=== PATIENT | female | born 1970 | race Caucasian/White ===

== ENCOUNTER 2017-12-04 12:58 | Inpatient (IN) | payer MEDICARE, SELFPAY ==
[2017-12-04] VITALS (26 sets, daily range): BP systolic 115–196; BP diastolic 69–156; PULSE 103–138; RESP 18–34; TEMP 36.3–38.8; O2SAT 95–100; BMI 28.5
[2017-12-04 13:15] LABS: Bedside Glucose 120 mg/dL (70-110)
--- NOTE | 2017-12-04 13:25 | ED.RN ---
PT REPORTED IM NOT A CUTTER PT NOTICED CUTTING KUMAR TO LLE MEDIALLY. PT ROCKING BACK IN FORTH IN BED, RESTLESS, TALKING ABOUT BEING IN A FIELD, GETTING KICKED TO LEFT SIDE OF RIBS, LOOKING FOR ANIMALS PT DENIES USING DRUGS. PT REPORTED GOING TO [employer], EATING HEALTHY, LISTENING TO [employer] MUSIC. PT TALKS NON-STOP AND CONTORTING WHEN LYING ON HER SIDE. I REMEMBER LAYING IN THE DIRT AND IT WAS COLD AND SCREAMING FOR THE CATS AND PRAYING. PT REMEMBERS THE HORSES WERE BEATING AND BANGING AND REMEMBER TELLING THE LORD; I'LL BREATHE REAL CAREFUL PT REMEMBERS CRAWLING INSIDE A TRUCK TODAY AND DRINKING WATER THAT WAS IN THE TRUCK PT REPORTING TURNING ON THE HEAT IN THE TRUCK AND FALLING ASLEEP. C/O FEELS LIKE MY TOES ARE
[2017-12-04 13:26] LABS: Mucous, Urine 0 SEEN /hpf (<or=2+); Red Blood Cells-Urine 0 SEEN /hpf (0-5); White Blood Cells 0 SEEN /hpf (0-5)
[2017-12-04] MEDS: Diphth,Pertuss(Acell),Tet Vac 0.5 ML Vial IM (13:34)
--- NOTE | 2017-12-04 13:37 | ED.RN ---
PT REMEMBERS ALL THE CATS STARTED MISSING ONLY ONE KITTEN WAS LEFT AND I SAW ALL THESE RED LIGHTS THEY WERE ALL BEHIND ME
--- NOTE | 2017-12-04 13:39 | ED.RN ---
ITS LIKE THE POWER WENT OUT BUT DIDN'T AND MY CAT WAS LITERALLY BANGING HIS HEAD AND GROWLING PT REPORTED SHE HAS NOT TAKEN ANY PO MEDICATIONS FOR YEARS.
[2017-12-04 13:41] LABS: Color, Urine YELLOW (Yellow); Glucose, Dipstick Normal (Normal); Ketone-Dipstick 50 mg/dl (Negative); Leukocyte Esterase-Dipstick Negative /ul (Negative); Nitrite-Dipstick Negative (Negative); Occult Blood-Urine Negative /ul (Negative); Protein-Dipstick 15 mg/dl (Negative); Urine Bilirubin Dipstick Negative (Negative); Urine Urobilinogen Normal (Normal)
[2017-12-04 13:42] LABS: Urine Clarity Clear (Clear)
[2017-12-04 13:42] LABS: Absolute Lymphocyte Count 3.22 X10^3/ul (0.83-4.51); Absolute Neutrophil Count 17.9 X10^3/uL (2.0-7.7); Basophil# 0.03 X10^3/uL; Basophil% 0.1 % (0-1); Eosinophil# 0.01 X10^3/uL; Hematocrit 44.1 % (37-47); Hemoglobin 15.2 g/dl (12.0-15.0); Lymphocyte # 3.22 X10^3/ul (4.0); Lymphocyte % 14.4 % (19-41); Mean Corp Hgb Conc 34.5 g/gl (32-36); Mean Corpuscular Hgb 32.5 pg (27.0-32.0); Mean Corpuscular Volume 94.2 fL (81-99); Mean Platelet Vol. 11.4 fl (6.2-12.0); Monocyte# 1.25 X10^3/uL; Monocyte% 5.6 % (0-10); Neutrophil # 17.87 X10^3/uL (2.7-7.7); Neutrophil % 79.7 % (47-70); Platelet Count 293 K/mm3 (150-450); RBC Distribution Width CV 12.6 % (11.6-14.6); Red Blood Count 4.68 M/mm3 (4.2-5.4); White Blood Count 22.4 K/mm3 (4.4-11.0)
[2017-12-04 13:44] LABS: POSITIVE COUNT NO; POSITIVE DIFFERENTIAL NO; POSITIVE MORPHOLOGY NO
[2017-12-04 13:45] LABS: Amphetamine Urine VISTA POSITIVE (<1000 ng/mL); Barbiturate Urine VISTA NEGATIVE (< 200 ng/mL); Benzodiazepine Urine VISTA NEGATIVE (< 200 ng/mL); Cocaine Urine VISTA NEGATIVE (< 300 ng/mL); Ecstacy Urine VISTA POSITIVE (< 500 ng/mL); Methadone Urine VISTA NEGATIVE (< 300 ng/mL); PCP Urine VISTA NEGATIVE (< 25 ng/mL); THC Urine VISTA POSITIVE (< 50 ng/mL); Vista UDS pH Range 5
[2017-12-04 13:46] LABS: Hyaline Cast 10-25 SEEN /lpf (0-5)
[2017-12-04 13:47] LABS: Bacteria 1+ /hpf (None Seen); Squamous Epithelial Cells - UA 0-5 SEEN /hpf (5-10)
--- NOTE | 2017-12-04 13:50 | ED.RN ---
PT REPEATS THAT SHE WAS LAYING OUTSIDE AND THE WIND WAS COMING FROM THE WEST AND WHEN I WOKE UP I WASN'T BEHIND THE WOOD PILE AND I NEEDED WATER
[2017-12-04 13:53] LABS: AST(SGOT) 21 U/L (15-37); Alanine Aminotransfer ALT/SGPT 22 U/L (13-56); Albumin, Serum 4.3 g/dL (3.2-5.0); Alkaline Phosphatase 97 U/L (45-117); Anion Gap 14 (5-15); BUN 48 mg/dL (7-18); BUN/Creat Ratio 30.2 RATIO (10-20); Calcium,Total 9.1 mg/dL (8.5-10.1); Chloride 103 mmol/L (98-107); Creatinine, Serum 1.59 mg/dL (0.55-1.02); EST Glomerular Filtration Rate 37 mL/min (>60); Est Glom Filt Rate - Afr Amer 45 mL/min (>60); Estimated Creatinine Clearance 36.57 ml/min; Globulin 4.3 g/dL (2.2-4.2); Glucose 107 mg/dL (74-106); Potassium 3.6 mmol/L (3.5-5.1); Protein, Total 8.6 g/dL (6.4-8.2); Sodium Level 139 mmol/L (136-145)
[2017-12-04 13:55] LABS: Partial Thromboplast Time 23.4 Seconds (24.1-36.2); Prothrombin Time (Protime)PT. 13.5 SECONDS (11.7-14.9)
--- NOTE | 2017-12-04 13:55 | CT_ITS ---
STUDY: CT BRAIN WITHOUT CONTRAST REASON FOR EXAM: Female, 47 years old. Altered mental status. RADIATION DOSAGE (If Supplied By Facility): CTDIvol = ( 44.99 ) mGy, DLP = ( 745.49 ) mGycm TECHNIQUE: Transaxial CT imaging of the brain was performed without administration of intravenous contrast material. Individualized dose optimization techniques were used for this CT. COMPARISON: None. FINDINGS: Normal soft tissue structures. Normal calvarium. Normal size ventricles and extra-axial spaces for the patient's age. Normal white matter tracts of the cerebral hemispheres. Normal basal ganglia and thalami. Normal brainstem. Normal cerebellum. There is no intracranial hemorrhage. There are no findings of an acute ischemic infarction. Mild mucosal thickening of the ethmoid sinuses. CT/Brain/Head without Contrast IMPRESSION: Normal unenhanced CT scan of the brain. Electronically Signed: Rory Rabago MD at 15:34 EDT Tel [phone], Service support ,
--- NOTE | 2017-12-04 14:19 | ED.RN ---
PT CONSTANTLY TALKING ABOUT LUCIFER AND COMPUTERS. PT BABBLING NON STOP.
[2017-12-04] MEDS: Ketamine HCl 500 MG/5 ML Vial 75 MG IV (14:55)
[2017-12-04] MEDS: Ketamine HCl 500 MG/5 ML Vial 290 MG IM (14:58)
--- NOTE | 2017-12-04 15:00 | ED.RN ---
PT FOUND STANDING AT HEAD OF BED WITH SUPERVISOR HOT DIP TINNING RIPPED OFF PT AND PT RANTING, PT WOULD NOT GET BACK IN BED, PT THEN MEDICATED WITH IV KETAMINE. PT SLOWLY WAS AMBULATED TO BED AND MUMBLED NONSENSICAL. BENNY VIZCAINO, ERICK STEEN, GURINDER GUTIERREZ, AND THIS NURSE WITH LUKE FROM [facility] PLACED PT BACK IN BED. THEN PT WAS PLACED IN SOFT RESTRAINTS TO WRISTS. PT WAS CALM WITH HEAD ROLLING SIDE TO SIDE FOR ABOUT 3 MINUTES THEN PT SAT UP IN BED AND STARTED SCREAMING AND THRASHING AROUND, STAFF ENTERED ROOM TO ASSIST WITH PLACEMENT OF LOCKED RESTRAINTS, PT THEN MEDICATED WITH IM KETAMINE. DR. DELANEY MATT.
[2017-12-04 15:30] LABS: Lactic Acid 1.2 mmol/L (0.4-2.0)
[2017-12-04] MEDS: Ketamine HCl 500 MG/5 ML Vial 150 MG IV (16:38)
--- NOTE | 2017-12-04 16:48 | ED.VISSUMM ---
- ER Visit Summary Date of Service: 12/04/17 Chief Complaint: Altered mental status History of Present Illness: The patient is a 47 F who was found by [place] in her vehicle naked. She is alert she is oriented. She has abnormal gyrating motion of her torso and extremities. She denies illicit drug use. She does admit to tobacco use she was unaware that she was naked in a vehicle. Her history is limited. She has visual hallucinations of seeing animals and specifically dogs and cats, individuals being beaten and demonic visions. Review of records there is a history of COPD, GERD, chronic fatigue, fibromyalgia breast mass with reconstruction left breast that was comp gated by infection and chronic sinusitis. Physical Examination: Blood pressure 151/88. Heart rate 106. She is not febrile nor is she hypoxic. Pupils are 4-5 mm in size and reactive. Unable to perform otoscopic exam initially. Nares patent. Posterior pharynx erythema x-ray. Trachea midline. There is no stridor. Heart is rapid and regular. Lungs are clear to auscultation. Abdomen is soft and presumed nontender. She has a fine blanching erythematous rash noted involving the torso and extremities. There is also multiple abrasions in different stages of healing. Once patient was sedated with ketamine her reflexes were assessed and normal. There was no clonus or Babinski sign noted. When she presented she was moving all extremities and there was no cranial nerve deficit that I was able to ascertain. EKG was not obtained because patient is uncooperative. Test Results: White count is 22,400 with 80 segs and 14% lymphs. Electrode panel was marked for BUN of 48 and a creatinine of 1.59. UA is negative however there is 1+ bacteria. Believe this to be a contaminant. Culture was sent. Because of the elevated white count blood cultures were obtained. Tox screen returned positive for amphetamines however she is on Adacel and cannabis. Emergency Department Course and Treatment: Metabolic, infectious and talked urologic workup was undertaken. To obtain a CAT scan and to evaluate for mass-effect sinusitis ketamine was administered. CT was reviewed by me interpreted by radiologist as negative. Patient received additional dose of ketamine. Lumbar puncture was performed and fluid is clear and colorless. Received 2 g of Rocephin in the event this is meningitis. Treatment Plan: Patient will require admission to the hospital. 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 Acute change in mental status with visual hallucinations 2 leukocytosis uncertain etiology 3. Bacteriuria 4. Rule out drug-induced psychosis with visual hallucinations This note was generated with [employer] dictation software. It may contain incorrect words, spelling, and punctuation that were not noted in review of the chart prior to signing ED Disposition - Plan for ED Patient: Chief Complaint: Mental Status Change Referrals: Quentin Diggs DO [Primary Care Provider] -
--- NOTE | 2017-12-04 16:58 | ED.DCSUM_ITS ---
- ER Visit Summary Date of Service: 12/04/17 Chief Complaint: Altered mental status History of Present Illness: The patient is a 47 F who was found by [place] in her vehicle naked. She is alert she is oriented. She has abnormal gyrating motion of her torso and extremities. She denies illicit drug use. She does admit to tobacco use she was unaware that she was naked in a vehicle. Her history is limited. She has visual hallucinations of seeing animals and specifically dogs and cats, individuals being beaten and demonic visions. Review of records there is a history of COPD, GERD, chronic fatigue, fibromyalgia breast mass with reconstruction left breast that was comp gated by infection and chronic sinusitis. Physical Examination: Blood pressure 151/88. Heart rate 106. She is not febrile nor is she hypoxic. Pupils are 4-5 mm in size and reactive. Unable to perform otoscopic exam initially. Nares patent. Posterior pharynx erythema x- ray. Trachea midline. There is no stridor. Heart is rapid and regular. Lungs are clear to auscultation. Abdomen is soft and presumed nontender. She has a fine blanching erythematous rash noted involving the torso and extremities. There is also multiple abrasions in different stages of healing. Once patient was sedated with ketamine her reflexes were assessed and normal. There was no clonus or Babinski sign noted. When she presented she was moving all extremities and there was no cranial nerve deficit that I was able to ascertain. EKG was not obtained because patient is uncooperative. Test Results: White count is 22,400 with 80 segs and 14% lymphs. Electrode panel was marked for BUN of 48 and a creatinine of 1.59. UA is negative however there is 1+ bacteria. Believe this to be a contaminant. Culture was sent. Because of the elevated white count blood cultures were obtained. Tox screen returned positive for amphetamines however she is on Adacel and cannabis. Emergency Department Course and Treatment: Metabolic, infectious and talked urologic workup was undertaken. To obtain a CAT scan and to evaluate for mass-effect sinusitis ketamine was administered. CT was reviewed by me interpreted by radiologist as negative. Patient received additional dose of ketamine. Lumbar puncture was performed and fluid is clear and colorless. Received 2 g of Rocephin in the event this is meningitis. Treatment Plan: Patient will require admission to the hospital. 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 Acute change in mental status with visual hallucinations 2 leukocytosis uncertain etiology 3. Bacteriuria 4. Rule out drug-induced psychosis with visual hallucinations This note was generated with [employer] dictation software. It may contain incorrect words, spelling, and punctuation that were not noted in review of the chart prior to signing ED Disposition - Plan for ED Patient: Chief Complaint: Mental Status Change Referrals: Quentin Diggs DO [Primary Care Provider] -
[2017-12-04 17:08] LABS: Glucose Spinal Fluid 71 mg/dL (40-75)
[2017-12-04 17:29] LABS: Body Fluid Mononuclear WBC # 0.002 10^3/uL; Body Fluid Mononuclear WBC % 66.7 %; Body Fluid Polynuclear WBC # 0.001 10^3/uL; Body Fluid Polynuclear WBC % 33.3 %; Total Cell Count CSF 0.003 10^3/uL (0.000-0.000); White Count, CSF 0.003 10^3/uL (0.000-0.000)
[2017-12-04 17:30] LABS: Auto B Fluid Analyzer BKGD Ct COUNTS W/IN LIMITS (W/IN LIMITS)
[2017-12-04 17:31] LABS: Appearance CSF (character) CLEAR (Clear); Body Fluid QC Type(s) BF4Q; CSF Color COLORLESS (Colorless); RBC Count, Spinal Fluid 93 /mm-3 (None seen); Tested Tube # 1
--- NOTE | 2017-12-04 17:50 | PCM.HP.STD ---
Problem List (1) Lumbar back pain Status: Chronic (2) Migraines Status: Chronic (3) History of fibromyalgia Status: Chronic (4) History of chronic fatigue syndrome Status: Chronic (5) Hypertension Status: Chronic (6) IBS (irritable bowel syndrome) Status: Chronic (7) GERD (gastroesophageal reflux disease) Status: Chronic (8) COPD (chronic obstructive pulmonary disease) Status: Chronic History of Present Illness Date of Admission: 12/04/17 Chief Complaint: Altered mental status. The patient is a 47 year old female patient with past medical history as mentioned above who was brought to the emergency department by squad and she was found by the barrel bander in her vehicle naked. At this time, patient is encephalopathic, agitated, restless and talking incoherently. She is not able to provide any history. There is no family member present at the bedside. Reportedly, patient has been having significant visualization while in the emergency room. She has history of COPD and she has been on bronchodilators but never been oxygen at home and she still smokes. She has a history of chronic back pain/chronic pain syndrome and apparently, she is taking Flexeril, hydromorphone and Lyrica for pain. She has history of hypertension and she has been on HCTZ. In the emergency room, patient was hallucinating, very agitated, restless. She was afebrile, tachycardic, blood pressure was elevated and her pulse ox was 99% on room air. She was given IV ketamine to calm her down. Lumbar puncture performed and revealed clear CSF, WBC in CSF is 0.003 and total cell count is 0.003. Glucose was 71 which is normal. Routine blood work is remarkable for leukocytosis, creatinine of 1.59 which is acute. Urine analysis revealed clear urine, negative for nitrite, negative for leukocyte esterase, there was 0 WBCs and +1 bacteria seen. Urine drug screen was positive for amphetamines, methamphetamines and cannabinoids. Patient received 1 dose of IV Rocephin empirically in the ER. Blood cultures and CSF culture sent. CT scan brain showed no acute findings. Being admitted for altered mental status/encephalopathy of unclear etiology, acute kidney injury and leukocytosis without evidence of acute infection. Past Medical History Past Medical History (Chronic Problems): Chronic Problems Lumbar back pain (Chronic) Migraines (Chronic) Morbid obesity with BMI of 40.0-44.9, adult (Chronic) History of fibromyalgia (Chronic) History of chronic fatigue syndrome (Chronic) History of urinary tract obstruction (Chronic) Morbid obesity (Chronic) Lump or mass in breast (Chronic) painful mass superior aspect right breast Fat necrosis of breast (Chronic) painful fat necrosis superior aspect right breast Bilateral mastodynia (Chronic) History of abnormal gait (Chronic) Smoker (Chronic) she quit prior to her surgery and has restarted nonhealing ulcers bilateral breasts (Chronic) she had bilateral breast reduction surgery on 04/17/15 Hypertension (Chronic) Asthma (Chronic) Chronic sinusitis (Chronic) IBS (irritable bowel syndrome) (Chronic) GERD (gastroesophageal reflux disease) (Chronic) COPD (chronic obstructive pulmonary disease) (Chronic) Fibromyalgia (Chronic) History of tobacco use (Chronic) History of migraine (Chronic) Allergies iodine Allergy (Verified 12/04/17 13:10) Hives ketorolac tromethamine [From Toradol] Allergy (Verified 12/04/17 13:10) Other tramadol Allergy (Verified 12/04/17 13:10) Other UNABLE TO TAKE W/ PSYC MEDS acetaminophen [From Vicodin] Adverse Reaction (Verified 12/04/17 13:10) Nausea/Vom/Diarrhea hydrocodone bitartrate [From Vicodin] Adverse Reaction (Verified 12/04/17 13:10) Nausea/Vom/Diarrhea Home Medications: Ambulatory Orders Medication Instructions Recorded Albuterol Inhaler [Ventolin Hfa] 1 puff INHALATION BID PRN PRN 03/13/15 Clonazepam [Klonopin] 1 mg PO TID 03/13/15 Cyclobenzaprine [Flexeril] 10 mg PO TID 03/13/15 Dextroamphetamine/Amphetamine 30 mg PO DAILY 03/13/15 [Adderall Xr 30 mg Capsule] Duloxetine Hcl [Cymbalta] 120 mg PO DAILY 03/13/15 Hydrochlorothiazide [Hctz] 25 mg PO DAILY 03/13/15 Lansoprazole [Prevacid] 30 mg PO DAILY 03/13/15 Loratadine [Claritin] 10 mg PO DAILY 03/13/15 Paliperidone [Invega] 6 mg PO DAILY 03/13/15 Pregabalin [Lyrica] 200 mg PO TID 03/13/15 busPIRone [Buspar] 10 mg PO TID 06/23/15 Levofloxacin [Levaquin] 500 mg PO DAILY 07/19/15 Amox/Clavulanate Tablet [Augmentin 875 mg PO BID #28 tablet 07/22/15 Tablet] Docusate Sodium [Colace] 100 mg PO BID #30 capsule 07/22/15 HYDROmorphone tablet [Dilaudid] 2 - 4 mg PO 4X/DAY PRN PRN #60 07/22/15 tablet Promethazine HCl 25 mg PO 4X/DAY PRN PRN #30 tablet 07/22/15 Surgical History: - - L Breast surgery for infection, Hysterectomy, Intervention associated w/ renal calculi. Bilateral breast reduction mammaplasty on 04/17/15. Recent 07/19/15 BL breast I+D and reconstruction as noted. Psychiatric History: Anxiety PRINCIPAL INVESTIGATOR History: No pertinent PRINCIPAL INVESTIGATOR history Smoking Status: Former smoker Tobacco Use: - - Unknown at this time. Alcohol: None Drugs: - - Unknown at this time. - *Family History Maternal History Items: Asthma, High Cholesterol, Hypertension Paternal History Items: No pertinent history Review of Systems Constitutional: Reports: - - Unobtainable, patient is agitated and incoherent. Eyes: Reports: - - Unobtainable, patient is agitated and incoherent. HEENT: Reports: - - Unobtainable, patient is agitated and incoherent. Cardiovascular: Reports: - - Unobtainable, patient is agitated and incoherent. Respiratory: Reports: - - Unobtainable, patient is agitated and incoherent. Gastrointestinal: Reports: - - Unobtainable, patient is agitated and incoherent. Genitourinary: Reports: - - Unobtainable, patient is agitated and incoherent. Gynecological: Reports: - - Unobtainable, patient is agitated and incoherent. Musculoskeletal: Reports: - - Unobtainable, patient is agitated and incoherent. Skin: Reports: - - Unobtainable, patient is agitated and incoherent. Neurological: Reports: - - Unobtainable, patient is agitated and incoherent. Psychiatric: Reports: - - Unobtainable, patient is agitated and incoherent. VTE Information - Inpt Only VTE Present on Admission: No VTE Mechan Device Prophylaxis: None VTE Pharm Prophylaxis ordered?: No - Physical Exam General: - - Alert, spontaneous eye opening, agitated, restless, incoherent. HEENT: Atraumatic, PERRLA, EOMI Oral: No Gingival or Mucosal Lesions/ Ulcerations, Dry Mucosa, - - Very dry mouth. Neck: Supple, No JVD, Negative Carotid Bruits, Trachea Midline, Thyroid Normal Size and Texture Lungs: Clear to auscultation, No rhonchi, No wheeze, No rales, Diminished Cardiovascular: Regular rate, Regular Rhythm, Normal S1, Normal S2, No murmurs, PMI Normal, Tachycardic Abdomen: Bowel Sounds Present, Soft, Non Tender, Non-Distended, No Hepato-splenomegaly Extremities: No clubbing, No cyanosis, No edema Skin: No rashes, No breakdown Lymphatic: No Cervical, Supraclavicular, or Inguinal Adenopathy Neurological: Cranial nerves II-XII grossly intact, - - Moving all limbs. Psych/Mental Status: Agitated, Hallucinations, Restless Vital Signs Temp Pulse Resp BP Pulse Ox 97.4 F L 112 H 20 H 131/98 H 98 12/04/17 14:08 12/04/17 17:13 12/04/17 17:13 12/04/17 17:13 12/04/17 17:13 Oxygen Delivery Method Room Air Microbiology 12/04/17 16:50 Gram Stain - Preliminary Csf, Spinal Fluid Laboratory Tests 12/04/17 12/04/17 12/04/17 Range/Units 16:50 16:50 14:02 WBC (4.4-11.0) K/mm3 RBC (4.2-5.4) M/mm3 Hgb (12.0-15.0) g/dl Hct (37-47) % MCV (81-99) fL MCH (27.0-32.0) pg MCHC (32-36) g/gl RDW (11.6-14.6) % RDW Differential (35.1-43.9) fl Plt Count (150-450) K/mm3 MPV (6.2-12.0) fl Immature Gran % (Auto) (0.0-0.9) % Neut % (Auto) (47-70) % Lymph % (Auto) (19-41) % [place] % (Auto) (0-10) % Eos % (Auto) (0-5) % Baso % (Auto) (0-1) % Absolute Neuts (auto) (2.0-7.7) X10^3/uL Absolute Lymphs (auto) (0.83-4.51) X10^3/ul Total Counted PT (11.7-14.9) SECONDS INR APTT (24.1-36.2) Seconds Sodium (136-145) mmol/L Potassium (3.5-5.1) mmol/L Chloride (98-107) mmol/L Carbon Dioxide (21.0-32.0) mmol/L Anion Gap (5-15) BUN (7-18) mg/dL Creatinine (0.55-1.02) mg/dL Estim Creat Clear Calc ml/min Est GFR (MDRD) Af Amer (>60) mL/min Est GFR (MDRD) Non-Af (>60) mL/min BUN/Creatinine Ratio (10-20) RATIO Glucose (74-106) mg/dL Lactic Acid 1.2 (0.4-2.0) mmol/L Calcium (8.5-10.1) mg/dL Total Bilirubin (0.20-1.00) mg/dL AST (15-37) U/L ALT (13-56) U/L Alkaline Phosphatase (45-117) U/L Total Protein (6.4-8.2) g/dL Albumin (3.2-5.0) g/dL Globulin (2.2-4.2) g/dL Albumin/Globulin Ratio (0.9-2.4) RATIO Urine Color (Yellow) Urine Clarity (Clear) Urine pH (5.0 - 8.0) Ur Specific [place] (1.002-1.030) Urine Protein (Negative) mg/dl Urine Glucose (UA) (Normal) mg/dl Urine Ketones (Negative) mg/dl Urine Occult Blood (Negative) /ul Urine Nitrite (Negative) Urine Bilirubin (Negative) mg/dL Urine Urobilinogen (Normal) mg/dl Ur Leukocyte Esterase (Negative) /ul Urine RBC (0-5) /hpf Urine WBC (0-5) /hpf Ur Squamous Epith Cells (5-10) /hpf Urine Bacteria (None Seen) /hpf Hyaline Casts (0-5) /lpf Urine Mucus (<or=2+) /hpf Fld Polynuclear WBCs # 0.001 10^3/uL Fld Polynuclear WBCs % 33.3 % Fluid Mononuclear WBCs 0.002 10^3/uL Fld Mononuclear WBCs % 66.7 % CSF Appearance CLEAR (Clear) CSF Color COLORLESS (Colorless) CSF WBC 0.003 H (0.000-0.000) 10^3/uL CSF RBC 93 H (None seen) /mm-3 CSF Cell Count Tube # 1 CSF Total Cell Counted 0.003 H (0.000-0.000) 10^3/uL CSF Comment May follow CSF Glucose 71 (40-75) mg/dL Urine Opiates Screen (< 300 ng/mL) Urine Methadone Screen (< 300 ng/mL) Ur Barbiturates Screen (< 200 ng/mL) Ur Phencyclidine Scrn (< 25 ng/mL) Ur Amphetamines Screen (<1000 ng/mL) U Methamphetamin-MDMA (< 500 ng/mL) U Benzodiazepines Scrn (< 200 ng/mL) Urine Cocaine Screen (< 300 ng/mL) U Cannabinoids Screen (< 50 ng/mL) Ur Drug Screen Comment POC Glucose (70-110) mg/dL 12/04/17 12/04/17 12/04/17 Range/Units 13:22 13:22 13:20 WBC (4.4-11.0) K/mm3 RBC (4.2-5.4) M/mm3 Hgb (12.0-15.0) g/dl Hct (37-47) % MCV (81-99) fL MCH (27.0-32.0) pg MCHC (32-36) g/gl RDW (11.6-14.6) % RDW Differential (35.1-43.9) fl Plt Count (150-450) K/mm3 MPV (6.2-12.0) fl Immature Gran % (Auto) (0.0-0.9) % Neut % (Auto) (47-70) % Lymph % (Auto) (19-41) % [place] % (Auto) (0-10) % Eos % (Auto) (0-5) % Baso % (Auto) (0-1) % Absolute Neuts (auto) (2.0-7.7) X10^3/uL Absolute Lymphs (auto) (0.83-4.51) X10^3/ul Total Counted PT (11.7-14.9) SECONDS INR APTT (24.1-36.2) Seconds Sodium 139 (136-145) mmol/L Potassium 3.6 (3.5-5.1) mmol/L Chloride 103 (98-107) mmol/L Carbon Dioxide 22.0 (21.0-32.0) mmol/L Anion Gap 14 (5-15) BUN 48 H (7-18) mg/dL Creatinine 1.59 H (0.55-1.02) mg/dL Estim Creat Clear Calc 36.57 ml/min Est GFR (MDRD) Af Amer 45 L (>60) mL/min Est GFR (MDRD) Non-Af 37 L (>60) mL/min BUN/Creatinine Ratio 30.2 H (10-20) RATIO Glucose 107 H (74-106) mg/dL Lactic Acid (0.4-2.0) mmol/L Calcium 9.1 (8.5-10.1) mg/dL Total Bilirubin 0.90 (0.20-1.00) mg/dL AST 21 (15-37) U/L ALT 22 (13-56) U/L Alkaline Phosphatase 97 (45-117) U/L Total Protein 8.6 H (6.4-8.2) g/dL Albumin 4.3 (3.2-5.0) g/dL Globulin 4.3 H (2.2-4.2) g/dL Albumin/Globulin Ratio 1.0 (0.9-2.4) RATIO Urine Color YELLOW (Yellow) Urine Clarity Clear (Clear) Urine pH 5.0 (5.0 - 8.0) Ur Specific [place] 1.030 (1.002-1.030) Urine Protein 15 H (Negative) mg/dl Urine Glucose (UA) Normal (Normal) mg/dl Urine Ketones 50 H (Negative) mg/dl Urine Occult Blood Negative (Negative) /ul Urine Nitrite Negative (Negative) Urine Bilirubin Negative (Negative) mg/dL Urine Urobilinogen Normal (Normal) mg/dl Ur Leukocyte Esterase Negative (Negative) /ul Urine RBC 0 SEEN (0-5) /hpf Urine WBC 0 SEEN (0-5) /hpf Ur Squamous Epith Cells 0-5 SEEN (5-10) /hpf Urine Bacteria 1+ (None Seen) /hpf Hyaline Casts 10-25 SEEN (0-5) /lpf Urine Mucus 0 SEEN (<or=2+) /hpf Fld Polynuclear WBCs # 10^3/uL Fld Polynuclear WBCs % % Fluid Mononuclear WBCs 10^3/uL Fld Mononuclear WBCs % % CSF Appearance (Clear) CSF Color (Colorless) CSF WBC (0.000-0.000) 10^3/uL CSF RBC (None seen) /mm-3 CSF Cell Count Tube # CSF Total Cell Counted (0.000-0.000) 10^3/uL CSF Comment CSF Glucose (40-75) mg/dL Urine Opiates Screen NEGATIVE (< 300 ng/mL) Urine Methadone Screen NEGATIVE (< 300 ng/mL) Ur Barbiturates Screen NEGATIVE (< 200 ng/mL) Ur Phencyclidine Scrn NEGATIVE (< 25 ng/mL) Ur Amphetamines Screen POSITIVE H (<1000 ng/mL) U Methamphetamin-MDMA POSITIVE H (< 500 ng/mL) U Benzodiazepines Scrn NEGATIVE (< 200 ng/mL) Urine Cocaine Screen NEGATIVE (< 300 ng/mL) U Cannabinoids Screen POSITIVE H (< 50 ng/mL) Ur Drug Screen Comment POC Glucose (70-110) mg/dL 12/04/17 12/04/17 12/04/17 Range/Units 13:20 13:20 13:02 WBC 22.4 H (4.4-11.0) K/mm3 RBC 4.68 (4.2-5.4) M/mm3 Hgb 15.2 H (12.0-15.0) g/dl Hct 44.1 (37-47) % MCV 94.2 (81-99) fL MCH 32.5 H (27.0-32.0) pg MCHC 34.5 (32-36) g/gl RDW 12.6 (11.6-14.6) % RDW Differential 43.0 (35.1-43.9) fl Plt Count 293 (150-450) K/mm3 MPV 11.4 (6.2-12.0) fl Immature Gran % (Auto) 0.200 (0.0-0.9) % Neut % (Auto) 79.7 H (47-70) % Lymph % (Auto) 14.4 L (19-41) % [place] % (Auto) 5.6 (0-10) % Eos % (Auto) 0.0 (0-5) % Baso % (Auto) 0.1 (0-1) % Absolute Neuts (auto) 17.9 H (2.0-7.7) X10^3/uL Absolute Lymphs (auto) 3.22 (0.83-4.51) X10^3/ul Total Counted Not Reportable PT 13.5 (11.7-14.9) SECONDS INR 1.0 APTT 23.4 L (24.1-36.2) Seconds Sodium (136-145) mmol/L Potassium (3.5-5.1) mmol/L Chloride (98-107) mmol/L Carbon Dioxide (21.0-32.0) mmol/L Anion Gap (5-15) BUN (7-18) mg/dL Creatinine (0.55-1.02) mg/dL Estim Creat Clear Calc ml/min Est GFR (MDRD) Af Amer (>60) mL/min Est GFR (MDRD) Non-Af (>60) mL/min BUN/Creatinine Ratio (10-20) RATIO Glucose (74-106) mg/dL Lactic Acid (0.4-2.0) mmol/L Calcium (8.5-10.1) mg/dL Total Bilirubin (0.20-1.00) mg/dL AST (15-37) U/L ALT (13-56) U/L Alkaline Phosphatase (45-117) U/L Total Protein (6.4-8.2) g/dL Albumin (3.2-5.0) g/dL Globulin (2.2-4.2) g/dL Albumin/Globulin Ratio (0.9-2.4) RATIO Urine Color (Yellow) Urine Clarity (Clear) Urine pH (5.0 - 8.0) Ur Specific [place] (1.002-1.030) Urine Protein (Negative) mg/dl Urine Glucose (UA) (Normal) mg/dl Urine Ketones (Negative) mg/dl Urine Occult Blood (Negative) /ul Urine Nitrite (Negative) Urine Bilirubin (Negative) mg/dL Urine Urobilinogen (Normal) mg/dl Ur Leukocyte Esterase (Negative) /ul Urine RBC (0-5) /hpf Urine WBC (0-5) /hpf Ur Squamous Epith Cells (5-10) /hpf Urine Bacteria (None Seen) /hpf Hyaline Casts (0-5) /lpf Urine Mucus (<or=2+) /hpf Fld Polynuclear WBCs # 10^3/uL Fld Polynuclear WBCs % % Fluid Mononuclear WBCs 10^3/uL Fld Mononuclear WBCs % % CSF Appearance (Clear) CSF Color (Colorless) CSF WBC (0.000-0.000) 10^3/uL CSF RBC (None seen) /mm-3 CSF Cell Count Tube # CSF Total Cell Counted (0.000-0.000) 10^3/uL CSF Comment CSF Glucose (40-75) mg/dL Urine Opiates Screen (< 300 ng/mL) Urine Methadone Screen (< 300 ng/mL) Ur Barbiturates Screen (< 200 ng/mL) Ur Phencyclidine Scrn (< 25 ng/mL) Ur Amphetamines Screen (<1000 ng/mL) U Methamphetamin-MDMA (< 500 ng/mL) U Benzodiazepines Scrn (< 200 ng/mL) Urine Cocaine Screen (< 300 ng/mL) U Cannabinoids Screen (< 50 ng/mL) Ur Drug Screen Comment POC Glucose 120 H (70-110) mg/dL Clinical Impression(s) from Imaging Studies Brain CT 12/04/17 13:55 IMPRESSION: Normal unenhanced CT scan of the brain. Electronically Signed: Rory Rabago MD at 15:34 EDT Tel [phone], Service support , Assessment/Plan This is a 47 years old female patient brought to the emergency department by squad because she was found naked in her vehicle by the barrel bander and she was found to have altered mental status/encephalopathy without clear etiology, acute kidney injury and leukocytosis without evidence of infection. #1 altered mental status/encephalopathy: Unclear etiology. Patient is agitated, combative and incoherent. Grossly, no focal deficit. CT scan brain without acute findings. Lumbar puncture without evidence of acute meningitis. Urine drug screen that was positive for amphetamines, methamphetamines and cannabinoids. Patient takes Adderall for ADHD. At this time, patient is restrained. She is afebrile, tachycardic, blood pressure was elevated but improved and pulse ox is 99% on room air. Plan: Admit to intensive care unit, close monitoring, critical care monitoring, continue wrist and leg restraints, keep on nothing by mouth, IV fluids, IV Ativan as needed, critical care consult, repeat CBC and BMP tomorrow morning. #2 acute kidney injury: Likely prerenal secondary to dehydration. Mucous membranes are very dry. Baseline kidney function is normal, admission creatinine is 1.59. Plan: IV fluids, input output chart, repeat BMP tomorrow morning. #3 leukocytosis/SIRS: Without clear evidence of infection. UA was clear, no UTI or cystitis. Chest was clear to auscultation. Lactic acid was normal. He will be was negative for meningitis. Patient received 1 dose of IV Rocephin empirically. Plan: Follow blood cultures as well as CSF cultures, continue empiric IV Rocephin, repeat CBC tomorrow morning. #4 COPD: At this time, pulse ox is 99% on room air. Lungs are clear to auscultation. Plan for albuterol as needed, oxygen by nasal cannula to keep O2 saturation more than 92%. #5 hypertension: Initially, blood pressure was elevated but improved. At home, she has been on HCTZ. At this time, HCTZ will be held, monitor blood pressure, IV hydralazine as needed. #6 GERD: Pepcid twice daily IV. #7 chronic back pain/chronic pain syndrome/fibromyalgia: At home, apparently she has been on hydromorphone and Lyrica. She received 1 dose of IV ketamine in the ER, patient is agitated and restless. Plan as above. #8 DVT prophylaxis: Subcu heparin. This note was generated with [employer] dictation software. It may contain incorrect words, spelling, and punctuation that were not noted in checking the note before signing. Code Visit Inpatient E&M: 12706 Init Hosp L3
--- NOTE | 2017-12-04 18:00 | HP.PCM_ITS ---
Problem List (1) Lumbar back pain Status: Chronic (2) Migraines Status: Chronic (3) History of fibromyalgia Status: Chronic (4) History of chronic fatigue syndrome Status: Chronic (5) Hypertension Status: Chronic (6) IBS (irritable bowel syndrome) Status: Chronic (7) GERD (gastroesophageal reflux disease) Status: Chronic (8) COPD (chronic obstructive pulmonary disease) Status: Chronic History of Present Illness Date of Admission: 12/04/17 Chief Complaint: Altered mental status. The patient is a 47 year old female patient with past medical history as mentioned above who was brought to the emergency department by squad and she was found by the music department chair in her vehicle naked. At this time, patient is encephalopathic, agitated, restless and talking incoherently. She is not able to provide any history. There is no family member present at the bedside. Reportedly, patient has been having significant visualization while in the emergency room. She has history of COPD and she has been on bronchodilators but never been oxygen at home and she still smokes. She has a history of chronic back pain/chronic pain syndrome and apparently, she is taking Flexeril, hydromorphone and Lyrica for pain. She has history of hypertension and she has been on HCTZ. In the emergency room, patient was hallucinating, very agitated, restless. She was afebrile, tachycardic, blood pressure was elevated and her pulse ox was 99% on room air. She was given IV ketamine to calm her down. Lumbar puncture performed and revealed clear CSF, WBC in CSF is 0.003 and total cell count is 0.003. Glucose was 71 which is normal. Routine blood work is remarkable for leukocytosis, creatinine of 1.59 which is acute. Urine analysis revealed clear urine, negative for nitrite, negative for leukocyte esterase, there was 0 WBCs and +1 bacteria seen. Urine drug screen was positive for amphetamines, methamphetamines and cannabinoids. Patient received 1 dose of IV Rocephin empirically in the ER. Blood cultures and CSF culture sent. CT scan brain showed no acute findings. Being admitted for altered mental status/ encephalopathy of unclear etiology, acute kidney injury and leukocytosis without evidence of acute infection. Past Medical History Past Medical History (Chronic Problems): Chronic Problems Lumbar back pain (Chronic) Migraines (Chronic) Morbid obesity with BMI of 40.0-44.9, adult (Chronic) History of fibromyalgia (Chronic) History of chronic fatigue syndrome (Chronic) History of urinary tract obstruction (Chronic) Morbid obesity (Chronic) Lump or mass in breast (Chronic) painful mass superior aspect right breast Fat necrosis of breast (Chronic) painful fat necrosis superior aspect right breast Bilateral mastodynia (Chronic) History of abnormal gait (Chronic) Smoker (Chronic) she quit prior to her surgery and has restarted nonhealing ulcers bilateral breasts (Chronic) she had bilateral breast reduction surgery on 04/17/15 Hypertension (Chronic) Asthma (Chronic) Chronic sinusitis (Chronic) IBS (irritable bowel syndrome) (Chronic) GERD (gastroesophageal reflux disease) (Chronic) COPD (chronic obstructive pulmonary disease) (Chronic) Fibromyalgia (Chronic) History of tobacco use (Chronic) History of migraine (Chronic) Allergies iodine Allergy (Verified 12/04/17 13:10) Hives ketorolac tromethamine [From Toradol] Allergy (Verified 12/04/17 13:10) Other tramadol Allergy (Verified 12/04/17 13:10) Other UNABLE TO TAKE W/ PSYC MEDS acetaminophen [From Vicodin] Adverse Reaction (Verified 12/04/17 13:10) Nausea/Vom/Diarrhea hydrocodone bitartrate [From Vicodin] Adverse Reaction (Verified 12/04/17 13:10) Nausea/Vom/Diarrhea Home Medications: Ambulatory Orders Medication Instructions Recorded Albuterol Inhaler [Ventolin Hfa] 1 puff INHALATION BID PRN PRN 03/13/15 Clonazepam [Klonopin] 1 mg PO TID 03/13/15 Cyclobenzaprine [Flexeril] 10 mg PO TID 03/13/15 Dextroamphetamine/Amphetamine 30 mg PO DAILY 03/13/15 [Adderall Xr 30 mg Capsule] Duloxetine Hcl [Cymbalta] 120 mg PO DAILY 03/13/15 Hydrochlorothiazide [Hctz] 25 mg PO DAILY 03/13/15 Lansoprazole [Prevacid] 30 mg PO DAILY 03/13/15 Loratadine [Claritin] 10 mg PO DAILY 03/13/15 Paliperidone [Invega] 6 mg PO DAILY 03/13/15 Pregabalin [Lyrica] 200 mg PO TID 03/13/15 busPIRone [Buspar] 10 mg PO TID 06/23/15 Levofloxacin [Levaquin] 500 mg PO DAILY 07/19/15 Amox/Clavulanate Tablet [Augmentin 875 mg PO BID #28 tablet 07/22/15 Tablet] Docusate Sodium [Colace] 100 mg PO BID #30 capsule 07/22/15 HYDROmorphone tablet [Dilaudid] 2 - 4 mg PO 4X/DAY PRN PRN #60 07/22/15 tablet Promethazine HCl 25 mg PO 4X/DAY PRN PRN #30 tablet 07/22/15 Surgical History: - - L Breast surgery for infection, Hysterectomy, Intervention associated w/ renal calculi. Bilateral breast reduction mammaplasty on 04/17/15. Recent 07/19/15 BL breast I+D and reconstruction as noted. 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 Alcohol: None Drugs: - - Unknown at this time. - *Family History Maternal History Items: Asthma, High Cholesterol, Hypertension Paternal History Items: No pertinent history Review of Systems Constitutional: Reports: - - Unobtainable, patient is agitated and incoherent. Eyes: Reports: - - Unobtainable, patient is agitated and incoherent. HEENT: Reports: - - Unobtainable, patient is agitated and incoherent. Cardiovascular: Reports: - - Unobtainable, patient is agitated and incoherent. Respiratory: Reports: - - Unobtainable, patient is agitated and incoherent. Gastrointestinal: Reports: - - Unobtainable, patient is agitated and incoherent. Genitourinary: Reports: - - Unobtainable, patient is agitated and incoherent. Gynecological: Reports: - - Unobtainable, patient is agitated and incoherent. Musculoskeletal: Reports: - - Unobtainable, patient is agitated and incoherent. Skin: Reports: - - Unobtainable, patient is agitated and incoherent. Neurological: Reports: - - Unobtainable, patient is agitated and incoherent. Psychiatric: Reports: - - Unobtainable, patient is agitated and incoherent. VTE Information - Inpt Only VTE Present on Admission: No VTE Mechan Device Prophylaxis: None VTE Pharm Prophylaxis ordered?: No - Physical Exam General: - - Alert, spontaneous eye opening, agitated, restless, incoherent. HEENT: Atraumatic, PERRLA, EOMI Oral: No Gingival or Mucosal Lesions/ Ulcerations, Dry Mucosa, - - Very dry mouth. Neck: Supple, No JVD, Negative Carotid Bruits, Trachea Midline, Thyroid Normal Size and Texture Lungs: Clear to auscultation, No rhonchi, No wheeze, No rales, Diminished Cardiovascular: Regular rate, Regular Rhythm, Normal S1, Normal S2, No murmurs, PMI Normal, Tachycardic Abdomen: Bowel Sounds Present, Soft, Non Tender, Non-Distended, No Hepato- splenomegaly Extremities: No clubbing, No cyanosis, No edema Skin: No rashes, No breakdown Lymphatic: No Cervical, Supraclavicular, or Inguinal Adenopathy Neurological: Cranial nerves II-XII grossly intact, - - Moving all limbs. Psych/Mental Status: Agitated, Hallucinations, Restless Vital Signs Temp Pulse Resp BP Pulse Ox 97.4 F L 112 H 20 H 131/98 H 98 12/04/17 14:08 12/04/17 17:13 12/04/17 17:13 12/04/17 17:13 12/04/17 17:13 Oxygen Delivery Method Room Air Microbiology 12/04/17 16:50 Gram Stain - Preliminary Csf, Spinal Fluid Laboratory Tests 3 12/04/17 12/04/17 12/04/17 Range/Units 16:50 16:50 14:02 WBC (4.4-11.0) K/mm3 RBC (4.2-5.4) M/mm3 Hgb (12.0-15.0) g/dl Hct (37-47) % MCV (81-99) fL MCH (27.0-32.0) pg MCHC (32-36) g/gl RDW (11.6-14.6) % RDW Differential (35.1-43.9) fl Plt Count (150-450) K/mm3 MPV (6.2-12.0) fl Immature Gran % (Auto) (0.0-0.9) % Neut % (Auto) (47-70) % Lymph % (Auto) (19-41) % [place] % (Auto) (0-10) % Eos % (Auto) (0-5) % Baso % (Auto) (0-1) % Absolute Neuts (auto) (2.0-7.7) X10^3/uL Absolute Lymphs (auto) (0.83-4.51) X10^3/ul Total Counted PT (11.7-14.9) SECONDS INR APTT (24.1-36.2) Seconds Sodium (136-145) mmol/L Potassium (3.5-5.1) mmol/L Chloride (98-107) mmol/L Carbon Dioxide (21.0-32.0) mmol/L Anion Gap (5-15) BUN (7-18) mg/dL Creatinine (0.55-1.02) mg/dL Estim Creat Clear Calc ml/min Est GFR (MDRD) Af Amer (>60) mL/min Est GFR (MDRD) Non-Af (>60) mL/min BUN/Creatinine Ratio (10-20) RATIO Glucose (74-106) mg/dL Lactic Acid 1.2 (0.4-2.0) mmol/L Calcium (8.5-10.1) mg/dL Total Bilirubin (0.20-1.00) mg/dL AST (15-37) U/L ALT (13-56) U/L Alkaline Phosphatase (45-117) U/L Total Protein (6.4-8.2) g/dL Albumin (3.2-5.0) g/dL Globulin (2.2-4.2) g/dL Albumin/Globulin Ratio (0.9-2.4) RATIO Urine Color (Yellow) Urine Clarity (Clear) Urine pH (5.0 - 8.0) Ur Specific Holt (1.002-1.030) Urine Protein (Negative) mg/dl Urine Glucose (UA) (Normal) mg/dl Urine Ketones (Negative) mg/dl Urine Occult Blood (Negative) /ul Urine Nitrite (Negative) Urine Bilirubin (Negative) mg/dL Urine Urobilinogen (Normal) mg/dl Ur Leukocyte Esterase (Negative) /ul Urine RBC (0-5) /hpf Urine WBC (0-5) /hpf Ur Squamous Epith Cells (5-10) /hpf Urine Bacteria (None Seen) /hpf Hyaline Casts (0-5) /lpf Urine Mucus (<or=2+) /hpf Fld Polynuclear WBCs # 0.001 10^3/uL Fld Polynuclear WBCs % 33.3 % Fluid Mononuclear WBCs 0.002 10^3/uL Fld Mononuclear WBCs % 66.7 % CSF Appearance CLEAR (Clear) CSF Color COLORLESS (Colorless) CSF WBC 0.003 H (0.000-0.000) 10^3/uL CSF RBC 93 H (None seen) /mm-3 CSF Cell Count Tube # 1 CSF Total Cell Counted 0.003 H (0.000-0.000) 10^3/uL CSF Comment May follow CSF Glucose 71 (40-75) mg/dL Urine Opiates Screen (< 300 ng/mL) Urine Methadone Screen (< 300 ng/mL) Ur Barbiturates Screen (< 200 ng/mL) Ur Phencyclidine Scrn (< 25 ng/mL) Ur Amphetamines Screen (<1000 ng/mL) U Methamphetamin-MDMA (< 500 ng/mL) U Benzodiazepines Scrn (< 200 ng/mL) Urine Cocaine Screen (< 300 ng/mL) U Cannabinoids Screen (< 50 ng/mL) Ur Drug Screen Comment POC Glucose (70-110) mg/dL 3 12/04/17 12/04/17 12/04/17 Range/Units 13:22 13:22 13:20 WBC (4.4-11.0) K/mm3 RBC (4.2-5.4) M/mm3 Hgb (12.0-15.0) g/dl Hct (37-47) % MCV (81-99) fL MCH (27.0-32.0) pg MCHC (32-36) g/gl RDW (11.6-14.6) % RDW Differential (35.1-43.9) fl Plt Count (150-450) K/mm3 MPV (6.2-12.0) fl Immature Gran % (Auto) (0.0-0.9) % Neut % (Auto) (47-70) % Lymph % (Auto) (19-41) % [place] % (Auto) (0-10) % Eos % (Auto) (0-5) % Baso % (Auto) (0-1) % Absolute Neuts (auto) (2.0-7.7) X10^3/uL Absolute Lymphs (auto) (0.83-4.51) X10^3/ul Total Counted PT (11.7-14.9) SECONDS INR APTT (24.1-36.2) Seconds Sodium 139 (136-145) mmol/L Potassium 3.6 (3.5-5.1) mmol/L Chloride 103 (98-107) mmol/L Carbon Dioxide 22.0 (21.0-32.0) mmol/L Anion Gap 14 (5-15) BUN 48 H (7-18) mg/dL Creatinine 1.59 H (0.55-1.02) mg/dL Estim Creat Clear Calc 36.57 ml/min Est GFR (MDRD) Af Amer 45 L (>60) mL/min Est GFR (MDRD) Non-Af 37 L (>60) mL/min BUN/Creatinine Ratio 30.2 H (10-20) RATIO Glucose 107 H (74-106) mg/dL Lactic Acid (0.4-2.0) mmol/L Calcium 9.1 (8.5-10.1) mg/dL Total Bilirubin 0.90 (0.20-1.00) mg/dL AST 21 (15-37) U/L ALT 22 (13-56) U/L Alkaline Phosphatase 97 (45-117) U/L Total Protein 8.6 H (6.4-8.2) g/dL Albumin 4.3 (3.2-5.0) g/dL Globulin 4.3 H (2.2-4.2) g/dL Albumin/Globulin Ratio 1.0 (0.9-2.4) RATIO Urine Color YELLOW (Yellow) Urine Clarity Clear (Clear) Urine pH 5.0 (5.0 - 8.0) Ur Specific Holt 1.030 (1.002-1.030) Urine Protein 15 H (Negative) mg/dl Urine Glucose (UA) Normal (Normal) mg/dl Urine Ketones 50 H (Negative) mg/dl Urine Occult Blood Negative (Negative) /ul Urine Nitrite Negative (Negative) Urine Bilirubin Negative (Negative) mg/dL Urine Urobilinogen Normal (Normal) mg/dl Ur Leukocyte Esterase Negative (Negative) /ul Urine RBC 0 SEEN (0-5) /hpf Urine WBC 0 SEEN (0-5) /hpf Ur Squamous Epith Cells 0-5 SEEN (5-10) /hpf Urine Bacteria 1+ (None Seen) /hpf Hyaline Casts 10-25 SEEN (0-5) /lpf Urine Mucus 0 SEEN (<or=2+) /hpf Fld Polynuclear WBCs # 10^3/uL Fld Polynuclear WBCs % % Fluid Mononuclear WBCs 10^3/uL Fld Mononuclear WBCs % % CSF Appearance (Clear) CSF Color (Colorless) CSF WBC (0.000-0.000) 10^3/uL CSF RBC (None seen) /mm-3 CSF Cell Count Tube # CSF Total Cell Counted (0.000-0.000) 10^3/uL CSF Comment CSF Glucose (40-75) mg/dL Urine Opiates Screen NEGATIVE (< 300 ng/mL) Urine Methadone Screen NEGATIVE (< 300 ng/mL) Ur Barbiturates Screen NEGATIVE (< 200 ng/mL) Ur Phencyclidine Scrn NEGATIVE (< 25 ng/mL) Ur Amphetamines Screen POSITIVE H (<1000 ng/mL) U Methamphetamin-MDMA POSITIVE H (< 500 ng/mL) U Benzodiazepines Scrn NEGATIVE (< 200 ng/mL) Urine Cocaine Screen NEGATIVE (< 300 ng/mL) U Cannabinoids Screen POSITIVE H (< 50 ng/mL) Ur Drug Screen Comment POC Glucose (70-110) mg/dL 3 12/04/17 12/04/17 12/04/17 Range/Units 13:20 13:20 13:02 WBC 22.4 H (4.4-11.0) K/mm3 RBC 4.68 (4.2-5.4) M/mm3 Hgb 15.2 H (12.0-15.0) g/dl Hct 44.1 (37-47) % MCV 94.2 (81-99) fL MCH 32.5 H (27.0-32.0) pg MCHC 34.5 (32-36) g/gl RDW 12.6 (11.6-14.6) % RDW Differential 43.0 (35.1-43.9) fl Plt Count 293 (150-450) K/mm3 MPV 11.4 (6.2-12.0) fl Immature Gran % (Auto) 0.200 (0.0-0.9) % Neut % (Auto) 79.7 H (47-70) % Lymph % (Auto) 14.4 L (19-41) % [place] % (Auto) 5.6 (0-10) % Eos % (Auto) 0.0 (0-5) % Baso % (Auto) 0.1 (0-1) % Absolute Neuts (auto) 17.9 H (2.0-7.7) X10^3/uL Absolute Lymphs (auto) 3.22 (0.83-4.51) X10^3/ul Total Counted Not Reportable PT 13.5 (11.7-14.9) SECONDS INR 1.0 APTT 23.4 L (24.1-36.2) Seconds Sodium (136-145) mmol/L Potassium (3.5-5.1) mmol/L Chloride (98-107) mmol/L Carbon Dioxide (21.0-32.0) mmol/L Anion Gap (5-15) BUN (7-18) mg/dL Creatinine (0.55-1.02) mg/dL Estim Creat Clear Calc ml/min Est GFR (MDRD) Af Amer (>60) mL/min Est GFR (MDRD) Non-Af (>60) mL/min BUN/Creatinine Ratio (10-20) RATIO Glucose (74-106) mg/dL Lactic Acid (0.4-2.0) mmol/L Calcium (8.5-10.1) mg/dL Total Bilirubin (0.20-1.00) mg/dL AST (15-37) U/L ALT (13-56) U/L Alkaline Phosphatase (45-117) U/L Total Protein (6.4-8.2) g/dL Albumin (3.2-5.0) g/dL Globulin (2.2-4.2) g/dL Albumin/Globulin Ratio (0.9-2.4) RATIO Urine Color (Yellow) Urine Clarity (Clear) Urine pH (5.0 - 8.0) Ur Specific Holt (1.002-1.030) Urine Protein (Negative) mg/dl Urine Glucose (UA) (Normal) mg/dl Urine Ketones (Negative) mg/dl Urine Occult Blood (Negative) /ul Urine Nitrite (Negative) Urine Bilirubin (Negative) mg/dL Urine Urobilinogen (Normal) mg/dl Ur Leukocyte Esterase (Negative) /ul Urine RBC (0-5) /hpf Urine WBC (0-5) /hpf Ur Squamous Epith Cells (5-10) /hpf Urine Bacteria (None Seen) /hpf Hyaline Casts (0-5) /lpf Urine Mucus (<or=2+) /hpf Fld Polynuclear WBCs # 10^3/uL Fld Polynuclear WBCs % % Fluid Mononuclear WBCs 10^3/uL Fld Mononuclear WBCs % % CSF Appearance (Clear) CSF Color (Colorless) CSF WBC (0.000-0.000) 10^3/uL CSF RBC (None seen) /mm-3 CSF Cell Count Tube # CSF Total Cell Counted (0.000-0.000) 10^3/uL CSF Comment CSF Glucose (40-75) mg/dL Urine Opiates Screen (< 300 ng/mL) Urine Methadone Screen (< 300 ng/mL) Ur Barbiturates Screen (< 200 ng/mL) Ur Phencyclidine Scrn (< 25 ng/mL) Ur Amphetamines Screen (<1000 ng/mL) U Methamphetamin-MDMA (< 500 ng/mL) U Benzodiazepines Scrn (< 200 ng/mL) Urine Cocaine Screen (< 300 ng/mL) U Cannabinoids Screen (< 50 ng/mL) Ur Drug Screen Comment POC Glucose 120 H (70-110) mg/dL Clinical Impression(s) from Imaging Studies Brain CT 12/04/17 13:55 IMPRESSION: Normal unenhanced CT scan of the brain. Electronically Signed: Rory Rabago MD at 15:34 EDT Tel [phone], Service support , Assessment/Plan This is a 47 years old female patient brought to the emergency department by squad because she was found naked in her vehicle by the music department chair and she was found to have altered mental status/encephalopathy without clear etiology, acute kidney injury and leukocytosis without evidence of infection. #1 altered mental status/encephalopathy: Unclear etiology. Patient is agitated , combative and incoherent. Grossly, no focal deficit. CT scan brain without acute findings. Lumbar puncture without evidence of acute meningitis. Urine drug screen that was positive for amphetamines, methamphetamines and cannabinoids. Patient takes Adderall for ADHD. At this time, patient is restrained. She is afebrile, tachycardic, blood pressure was elevated but improved and pulse ox is 99% on room air. Plan: Admit to intensive care unit, close monitoring, critical care monitoring, continue wrist and leg restraints, keep on nothing by mouth, IV fluids, IV Ativan as needed, critical care consult , repeat CBC and BMP tomorrow morning. #2 acute kidney injury: Likely prerenal secondary to dehydration. Mucous membranes are very dry. Baseline kidney function is normal, admission creatinine is 1.59. Plan: IV fluids, input output chart, repeat BMP tomorrow morning. #3 leukocytosis/SIRS: Without clear evidence of infection. UA was clear, no UTI or cystitis. Chest was clear to auscultation. Lactic acid was normal. He will be was negative for meningitis. Patient received 1 dose of IV Rocephin empirically. Plan: Follow blood cultures as well as CSF cultures, continue empiric IV Rocephin, repeat CBC tomorrow morning. #4 COPD: At this time, pulse ox is 99% on room air. Lungs are clear to auscultation. Plan for albuterol as needed, oxygen by nasal cannula to keep O2 saturation more than 92%. #5 hypertension: Initially, blood pressure was elevated but improved. At home, she has been on HCTZ. At this time, HCTZ will be held, monitor blood pressure, IV hydralazine as needed. #6 GERD: Pepcid twice daily IV. #7 chronic back pain/chronic pain syndrome/fibromyalgia: At home, apparently she has been on hydromorphone and Lyrica. She received 1 dose of IV ketamine in the ER, patient is agitated and restless. Plan as above. #8 DVT prophylaxis: Subcu heparin. This note was generated with [employer] dictation software. It may contain incorrect words, spelling, and punctuation that were not noted in checking the note before signing. Code Visit Inpatient E&M: 65012 Init Hosp L3
--- NOTE | 2017-12-04 18:10 | EKG12_ITS ---
Test Reason : ARRHYTHMIA Blood Pressure : / mmHG Vent. Rate : 112 BPM Atrial Rate : 112 BPM P-R Int : 134 ms QRS Dur : 092 ms QT Int : 364 ms P-R-T Axes : 066 078 042 degrees QTc Int : 496 ms Sinus tachycardia Otherwise normal ECG When compared with ECG of 18-JUL-2015 14:37, No significant change was found Confirmed by ADEN FARRIS ([id number]), newspaper editor managing ABHIJIT IRWIN ([id number]) on 12/10/2017 2:51:08 PM Referred By: DAY Confirmed By:ADEN FARRIS
--- NOTE | 2017-12-04 18:35 | NURSING ---
Patient admitted to ICU from the ER. Patient thrashing, kicking, attempting to bite, pinch and grab staff. 4 point locked restraints continued from the ER, required 5 staff members and took approximately 45 min to apply restraints.
[2017-12-04 19:07] LABS: CPK Total, Creatine Kinase 377 U/L (26-192)
[2017-12-04] MEDS: Lactated Ringers 1,000 ML 100 ML IV (19:30)
[2017-12-04] MEDS: 0.9% NaCl Peripheral Flush Adult/Peds IV ×2 (19:34→21:49)
--- NOTE | 2017-12-04 19:35 | NURSING ---
Pt very restless and agitated, yelling out and thrashing around in the bed. Pt is in 4-point locked restraints. Unable to get accurate BP due to pt being so restless and agitated.
--- NOTE | 2017-12-04 19:45 | NURSING ---
Pt was examined by this RN, she has white foam and crusting around her mouth, this was wiped away and came back within minutes. Pt has a mask on due to spitting at staff members upon entering the room and coming close to her bed.
[2017-12-04 21:39] LABS: M R Staph aureus DNA By PCR Negative (Negative); Probe Check PASS; Specimen Processing Control PASS
--- NOTE | 2017-12-04 21:45 | NURSING ---
Pt still very restless and agitated and thrashing around in the bed yelling and threatening the staff. Dr Jean-Baptiste was notified at this time and ordered IV haldol and IM geadon.
[2017-12-04] MEDS: Haloperidol Lactate 5 MG/ML Vial IV (21:49)
[2017-12-04] MEDS: Ziprasidone IM 20 MG/ML VIAL IM (22:01)
[2017-12-04] MEDS: Heparin Injection 5,000 UNITS/ML Syringe 5000 UNITS SC (22:04)
--- NOTE | 2017-12-04 22:15 | NURSING ---
This RN, Meredith (RN Client Representative), Mary (FABRICATION INSPECTOR), Nery (FABRICATION INSPECTOR), Darek (FABRICATION INSPECTOR) were all in the room for the administration of geadon and haldol. Pt is now calm and sleeping after the administration of these medications.
--- NOTE | 2017-12-04 22:44 | NURSING ---
pt was extremely combative at this time and we were unable to do any kind of hygiene care.
[2017-12-05] VITALS (55 sets, daily range): BP systolic 114–174; BP diastolic 69–122; PULSE 73–103; RESP 15–25; TEMP 36.4–36.8; O2SAT 98–100
[2017-12-05 04:30] LABS: Absolute Lymphocyte Count 2.37 X10^3/ul (0.83-4.51); Absolute Neutrophil Count 11.9 X10^3/uL (2.0-7.7); Basophil# 0.03 X10^3/uL; Basophil% 0.2 % (0-1); Eosinophil# 0.01 X10^3/uL; Eosinophils% 0.1 % (0-5); Hematocrit 40.1 % (37-47); Hemoglobin 13.5 g/dl (12.0-15.0); Lymphocyte # 2.37 X10^3/ul (4.0); Lymphocyte % 15.3 % (19-41); Mean Corp Hgb Conc 33.7 g/gl (32-36); Mean Platelet Vol. 11.4 fl (6.2-12.0); Monocyte# 1.15 X10^3/uL; Monocyte% 7.4 % (0-10); Neutrophil # 11.91 X10^3/uL (2.7-7.7); Neutrophil % 76.7 % (47-70); POSITIVE COUNT NO; POSITIVE DIFFERENTIAL NO; POSITIVE MORPHOLOGY NO; Platelet Count 218 K/mm3 (150-450); RBC Distribution Width CV 12.8 % (11.6-14.6); RBC Distribution Width SD 44.1 fl (35.1-43.9); Red Blood Count 4.22 M/mm3 (4.2-5.4); White Blood Count 15.5 K/mm3 (4.4-11.0)
[2017-12-05 04:45] LABS: CPK Total, Creatine Kinase 561 U/L (26-192)
[2017-12-05 04:54] LABS: Anion Gap 14 (5-15); BUN 44 mg/dL (7-18); BUN/Creat Ratio 41.9 RATIO (10-20); Calcium,Total 8.7 mg/dL (8.5-10.1); Chloride 109 mmol/L (98-107); Creatinine, Serum 1.05 mg/dL (0.55-1.02); EST Glomerular Filtration Rate 60 mL/min (>60); Est Glom Filt Rate - Afr Amer 73 mL/min (>60); Estimated Creatinine Clearance 55.38 ml/min; Glucose 107 mg/dL (74-106); Potassium 3.8 mmol/L (3.5-5.1); Sodium Level 144 mmol/L (136-145)
[2017-12-05] MEDS: 0.9% NaCl Peripheral Flush Adult/Peds IV (04:57)
[2017-12-05] MEDS: Lactated Ringers 1,000 ML 100 ML IV (04:57)
--- NOTE | 2017-12-05 06:50 | PCM.CON.CC ---
Reason for Consult Date of Consultation: 12/05/17 Reason for Consultation: Altered mentation History of Present Illness: The patient is a 47-year-old female, with a history as outlined below, who presented to the emergency department on December 04 after being found by the livestock caretaker's department in her vehicle, without clothes on and in an altered state. This morning, the patient is more alert. She is aware of her surroundings. However, she reports the last thing she remembers is going to [employer] last week. She does not recall doing any illicit drugs of any kind. She is not able to provide any additional insight into the circumstances in which she was found in her automobile. The only thing that she does admit to is occasional marijuana use. On presentation to the emergency department, the patient was noted to be afebrile, mildly tachycardic and hypertensive. She was tachypneic but maintaining appropriate oxygen saturations on room air. Laboratory evaluation revealed elevated white blood cell count to 22,000. INR is within normal limits. Chemistry profile revealed evidence of acute kidney injury with a creatinine 1.59. Serum lactate was within normal limits. CK was elevated to 377. Urinalysis was negative for the presence of infection. Toxicology screen was positive for amphetamines, methamphetamines and cannabinoids. Serum glucose was within normal limits. CT head was unremarkable. The patient did undergo an LP while in the emergency department, which was also unremarkable. CSF Gram stain revealed no organisms. The patient was given supplemental IV fluid hydration and started empirically on antibiotics, over concern for potential infection of unclear source. She did require the initiation of four-point restraints and was subsequently admitted to the medical intensive care unit for ongoing management. Past Medical History Past Medical History (Chronic Problems): Chronic Problems Lumbar back pain (Chronic) Migraines (Chronic) Morbid obesity with BMI of 40.0-44.9, adult (Chronic) History of fibromyalgia (Chronic) History of chronic fatigue syndrome (Chronic) History of urinary tract obstruction (Chronic) Morbid obesity (Chronic) Lump or mass in breast (Chronic) painful mass superior aspect right breast Fat necrosis of breast (Chronic) painful fat necrosis superior aspect right breast Bilateral mastodynia (Chronic) History of abnormal gait (Chronic) Smoker (Chronic) she quit prior to her surgery and has restarted nonhealing ulcers bilateral breasts (Chronic) she had bilateral breast reduction surgery on 04/17/15 Hypertension (Chronic) Asthma (Chronic) Chronic sinusitis (Chronic) IBS (irritable bowel syndrome) (Chronic) GERD (gastroesophageal reflux disease) (Chronic) COPD (chronic obstructive pulmonary disease) (Chronic) Fibromyalgia (Chronic) History of tobacco use (Chronic) History of migraine (Chronic) Allergies iodine Allergy (Verified 12/04/17 13:10) Hives ketorolac tromethamine [From Toradol] Allergy (Verified 12/04/17 13:10) Other tramadol Allergy (Verified 12/04/17 13:10) Other UNABLE TO TAKE W/ PSYC MEDS acetaminophen [From Vicodin] Adverse Reaction (Verified 12/04/17 13:10) Nausea/Vom/Diarrhea hydrocodone bitartrate [From Vicodin] Adverse Reaction (Verified 12/04/17 13:10) Nausea/Vom/Diarrhea Home Medications: Ambulatory Orders Medication Instructions Recorded Albuterol Inhaler [Ventolin Hfa] 1 puff INHALATION BID PRN PRN 03/13/15 Clonazepam [Klonopin] 1 mg PO TID 03/13/15 Cyclobenzaprine [Flexeril] 10 mg PO TID 03/13/15 Dextroamphetamine/Amphetamine 30 mg PO DAILY 03/13/15 [Adderall Xr 30 mg Capsule] Duloxetine Hcl [Cymbalta] 120 mg PO DAILY 03/13/15 Hydrochlorothiazide [Hctz] 25 mg PO DAILY 03/13/15 Lansoprazole [Prevacid] 30 mg PO DAILY 03/13/15 Loratadine [Claritin] 10 mg PO DAILY 03/13/15 Paliperidone [Invega] 6 mg PO DAILY 03/13/15 Pregabalin [Lyrica] 200 mg PO TID 03/13/15 busPIRone [Buspar] 10 mg PO TID 03/13/15 Levofloxacin [Levaquin] 500 mg PO DAILY 07/19/15 Amox/Clavulanate Tablet [Augmentin 875 mg PO BID #28 tablet 07/22/15 Tablet] Docusate Sodium [Colace] 100 mg PO BID #30 capsule 07/22/15 HYDROmorphone tablet [Dilaudid] 2 - 4 mg PO 4X/DAY PRN PRN #60 07/22/15 tablet Promethazine HCl 25 mg PO 4X/DAY PRN PRN #30 tablet 07/22/15 Surgical History: - - L Breast surgery for infection, Hysterectomy, Intervention associated w/ renal calculi. Bilateral breast reduction mammaplasty on 04/17/15. Recent 07/19/15 BL breast I+D and reconstruction as noted. 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 Alcohol: None Drugs: - - Unknown at this time. - *Family History Maternal History Items: Asthma, High Cholesterol, Hypertension Paternal History Items: No pertinent history Review of Systems Constitutional: Denies: Chills, Fever Eyes: Denies: Blurred vision, Double vision HEENT: Denies: Head Aches, Sinus Congestion, Sinus Drainage Cardiovascular: Denies: Chest Pain, Palpitations Respiratory: Denies: Cough, Shortness of breath at rest, Sputum production Gastrointestinal: Denies: Abdominal Pain, Nausea, Vomiting Genitourinary: Denies: Dysuria Musculoskeletal: Denies: Joint Pain, Joint Tenderness Skin: Denies: Rash, Wounds Neurological: Denies: Numbness, Tingling, Focal weakness Psychiatric: Denies: Anxiety, Depression, Homicidal Ideations, Suicidal Ideations Hematologic/ Lymphatic: Denies: Easy Bruising, Easy Bleeding Objective: The patient's most recent lab work, culture data and imaging studies have all been personally reviewed. - Physical Exam General: Alert, Cooperative, No apparent distress, - - Currently in four-point restraints. She is alert and oriented to person, place and time. HEENT: Atraumatic, PERRLA, Normocephalic Oral: Dry Mucosa Neck: Supple, No Nodes, Trachea Midline Lungs: No rhonchi, No wheeze, No rales, Diminished Cardiovascular: Regular rate, Regular Rhythm, Normal S1, Normal S2, No murmurs Abdomen: Bowel Sounds Present, Soft, Non Tender, Non-Distended Extremities: No clubbing, No cyanosis, No edema Skin: No breakdown Musculoskeletal: No Muscle Wasting Lymphatic: No Cervical, Supraclavicular, or Inguinal Adenopathy Neurological: - - No focal neurological deficits. Psych/Mental Status: Appropriate Vital Signs Temp Pulse Resp BP Pulse Ox 97.8 F 86 19 H 146/95 H 100 12/05/17 06:45 12/05/17 06:45 12/05/17 06:45 12/05/17 06:45 12/05/17 06:45 Oxygen Delivery Method Room Air Weight: 151 lb 0.266 oz Intake and Output for Last 24 Hours 12/03/17 12/04/17 12/05/17 23:59 23:59 23:59 Intake Total 380 / 380 552 / 552 Output Total 700 / 700 325 / 325 Balance -320 / -320 227 / 227 Laboratory Tests Past 24 Hrs 12/04/17 12/05/17 12/05/17 19:45 04:10 04:10 WBC 15.5 H RBC 4.22 Hgb 13.5 Hct 40.1 MCV 95.0 MCH 32.0 MCHC 33.7 RDW 12.8 RDW Differential 44.1 H Plt Count 218 MPV 11.4 Immature Gran % (Auto) 0.300 Neut % (Auto) 76.7 H Lymph % (Auto) 15.3 L [place] % (Auto) 7.4 Eos % (Auto) 0.1 Baso % (Auto) 0.2 Absolute Neuts (auto) 11.9 H Absolute Lymphs (auto) 2.37 Total Counted Not Reportable Sodium 144 Potassium 3.8 Chloride 109 H Carbon Dioxide 21.0 Anion Gap 14 BUN 44 H Creatinine 1.05 H Estim Creat Clear Calc 55.38 Est GFR (MDRD) Af Amer 73 Est GFR (MDRD) Non-Af 60 BUN/Creatinine Ratio 41.9 H Glucose 107 H Calcium 8.7 Total Creatine Kinase MRSA (PCR) Negative 12/05/17 04:10 WBC RBC Hgb Hct MCV MCH MCHC RDW RDW Differential Plt Count MPV Immature Gran % (Auto) Neut % (Auto) Lymph % (Auto) [place] % (Auto) Eos % (Auto) Baso % (Auto) Absolute Neuts (auto) Absolute Lymphs (auto) Total Counted Sodium Potassium Chloride Carbon Dioxide Anion Gap BUN Creatinine Estim Creat Clear Calc Est GFR (MDRD) Af Amer Est GFR (MDRD) Non-Af BUN/Creatinine Ratio Glucose Calcium Total Creatine Kinase 561 H MRSA (PCR) Clinical Impression(s) from Imaging Studies Brain CT 12/04/17 13:55 IMPRESSION: Normal unenhanced CT scan of the brain. Electronically Signed: Rory Rabago MD at 15:34 EDT Tel [phone], Service support , Assessment/Plan RECOMMENDATIONS: 1. Okay to discontinue antibiotics from my perspective. 2. Release patient from restraints 3. Perform bedside swallow evaluation if appropriate and advance diet. 4. Once tolerating p.o. intake, discontinue supplemental IV fluids 5. Continue Haldol as needed 6. Restart home blood pressure medications once able to tolerate p.o. intake IMPRESSIONS: 1. Encephalopathy/altered mentation of unclear etiology The patient's presentation does not appear to be infectious in nature. This may be secondary to some form of illicit ingestion. The patient appears much more calm and appropriate this morning than that documented last evening. We will plan to discontinue her restraints accordingly. Continue as needed Haldol in the interim. Given that there does not appear to be a readily identifiable infectious process at play here, antibiotics can be discontinued. 2. Acute kidney injury Likely prerenal in etiology. CK was mildly elevated, although the patient was combative upon presentation to the hospital. Continue supplemental IV fluids accordingly. 3. Questionable COPD Continue as needed aerosol treatments for now. 4. Hypertension/GERD/chronic back pain/fibromyalgia Complicates care, management, recovery and prognosis. Plan to restart home antihypertensives once able to tolerate p.o. intake. Avoid sedating medications for now. This note was generated with [employer] dictation software. It may contain incorrect words, spelling, and punctuation that were not noted in checking the note before signing. Code Visit Inpatient E&M: 44483 Init Hosp L3
--- NOTE | 2017-12-05 06:57 | CON.PCM_ITS ---
Reason for Consult Date of Consultation: 12/05/17 Reason for Consultation: Altered mentation History of Present Illness: The patient is a 47-year-old female, with a history as outlined below, who presented to the emergency department on December 04 after being found by the supervisor grower's department in her vehicle, without clothes on and in an altered state. This morning, the patient is more alert. She is aware of her surroundings. However, she reports the last thing she remembers is going to [employer] last week. She does not recall doing any illicit drugs of any kind. She is not able to provide any additional insight into the circumstances in which she was found in her automobile. The only thing that she does admit to is occasional marijuana use. On presentation to the emergency department, the patient was noted to be afebrile, mildly tachycardic and hypertensive. She was tachypneic but maintaining appropriate oxygen saturations on room air. Laboratory evaluation revealed elevated white blood cell count to 22,000. INR is within normal limits. Chemistry profile revealed evidence of acute kidney injury with a creatinine 1.59. Serum lactate was within normal limits. CK was elevated to 377. Urinalysis was negative for the presence of infection. Toxicology screen was positive for amphetamines, methamphetamines and cannabinoids. Serum glucose was within normal limits. CT head was unremarkable. The patient did undergo an LP while in the emergency department, which was also unremarkable. CSF Gram stain revealed no organisms. The patient was given supplemental IV fluid hydration and started empirically on antibiotics, over concern for potential infection of unclear source. She did require the initiation of four- point restraints and was subsequently admitted to the medical intensive care unit for ongoing management. Past Medical History Past Medical History (Chronic Problems): Chronic Problems Lumbar back pain (Chronic) Migraines (Chronic) Morbid obesity with BMI of 40.0-44.9, adult (Chronic) History of fibromyalgia (Chronic) History of chronic fatigue syndrome (Chronic) History of urinary tract obstruction (Chronic) Morbid obesity (Chronic) Lump or mass in breast (Chronic) painful mass superior aspect right breast Fat necrosis of breast (Chronic) painful fat necrosis superior aspect right breast Bilateral mastodynia (Chronic) History of abnormal gait (Chronic) Smoker (Chronic) she quit prior to her surgery and has restarted nonhealing ulcers bilateral breasts (Chronic) she had bilateral breast reduction surgery on 04/17/15 Hypertension (Chronic) Asthma (Chronic) Chronic sinusitis (Chronic) IBS (irritable bowel syndrome) (Chronic) GERD (gastroesophageal reflux disease) (Chronic) COPD (chronic obstructive pulmonary disease) (Chronic) Fibromyalgia (Chronic) History of tobacco use (Chronic) History of migraine (Chronic) Allergies iodine Allergy (Verified 12/04/17 13:10) Hives ketorolac tromethamine [From Toradol] Allergy (Verified 12/04/17 13:10) Other tramadol Allergy (Verified 12/04/17 13:10) Other UNABLE TO TAKE W/ PSYC MEDS acetaminophen [From Vicodin] Adverse Reaction (Verified 12/04/17 13:10) Nausea/Vom/Diarrhea hydrocodone bitartrate [From Vicodin] Adverse Reaction (Verified 12/04/17 13:10) Nausea/Vom/Diarrhea Home Medications: Ambulatory Orders Medication Instructions Recorded Albuterol Inhaler [Ventolin Hfa] 1 puff INHALATION BID PRN PRN 03/13/15 Clonazepam [Klonopin] 1 mg PO TID 03/13/15 Cyclobenzaprine [Flexeril] 10 mg PO TID 03/13/15 Dextroamphetamine/Amphetamine 30 mg PO DAILY 03/13/15 [Adderall Xr 30 mg Capsule] Duloxetine Hcl [Cymbalta] 120 mg PO DAILY 03/13/15 Hydrochlorothiazide [Hctz] 25 mg PO DAILY 03/13/15 Lansoprazole [Prevacid] 30 mg PO DAILY 03/13/15 Loratadine [Claritin] 10 mg PO DAILY 03/13/15 Paliperidone [Invega] 6 mg PO DAILY 03/13/15 Pregabalin [Lyrica] 200 mg PO TID 03/13/15 busPIRone [Buspar] 10 mg PO TID 03/13/15 Levofloxacin [Levaquin] 500 mg PO DAILY 07/19/15 Amox/Clavulanate Tablet [Augmentin 875 mg PO BID #28 tablet 07/22/15 Tablet] Docusate Sodium [Colace] 100 mg PO BID #30 capsule 07/22/15 HYDROmorphone tablet [Dilaudid] 2 - 4 mg PO 4X/DAY PRN PRN #60 07/22/15 tablet Promethazine HCl 25 mg PO 4X/DAY PRN PRN #30 tablet 07/22/15 Surgical History: - - L Breast surgery for infection, Hysterectomy, Intervention associated w/ renal calculi. Bilateral breast reduction mammaplasty on 04/17/15. Recent 07/19/15 BL breast I+D and reconstruction as noted. 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 Alcohol: None Drugs: - - Unknown at this time. - *Family History Maternal History Items: Asthma, High Cholesterol, Hypertension Paternal History Items: No pertinent history Review of Systems Constitutional: Denies: Chills, Fever Eyes: Denies: Blurred vision, Double vision HEENT: Denies: Head Aches, Sinus Congestion, Sinus Drainage Cardiovascular: Denies: Chest Pain, Palpitations Respiratory: Denies: Cough, Shortness of breath at rest, Sputum production Gastrointestinal: Denies: Abdominal Pain, Nausea, Vomiting Genitourinary: Denies: Dysuria Musculoskeletal: Denies: Joint Pain, Joint Tenderness Skin: Denies: Rash, Wounds Neurological: Denies: Numbness, Tingling, Focal weakness Psychiatric: Denies: Anxiety, Depression, Homicidal Ideations, Suicidal Ideations Hematologic/ Lymphatic: Denies: Easy Bruising, Easy Bleeding Objective: The patient's most recent lab work, culture data and imaging studies have all been personally reviewed. - Physical Exam General: Alert, Cooperative, No apparent distress, - - Currently in four-point restraints. She is alert and oriented to person, place and time. HEENT: Atraumatic, PERRLA, Normocephalic Oral: Dry Mucosa Neck: Supple, No Nodes, Trachea Midline Lungs: No rhonchi, No wheeze, No rales, Diminished Cardiovascular: Regular rate, Regular Rhythm, Normal S1, Normal S2, No murmurs Abdomen: Bowel Sounds Present, Soft, Non Tender, Non-Distended Extremities: No clubbing, No cyanosis, No edema Skin: No breakdown Musculoskeletal: No Muscle Wasting Lymphatic: No Cervical, Supraclavicular, or Inguinal Adenopathy Neurological: - - No focal neurological deficits. Psych/Mental Status: Appropriate Vital Signs Temp Pulse Resp BP Pulse Ox 97.8 F 86 19 H 146/95 H 100 12/05/17 06:45 12/05/17 06:45 12/05/17 06:45 12/05/17 06:45 12/05/17 06:45 Oxygen Delivery Method Room Air Weight: 151 lb 0.266 oz Intake and Output for Last 24 Hours 12/03/17 12/04/17 12/05/17 23:59 23:59 23:59 Intake Total 380 / 380 552 / 552 Output Total 700 / 700 325 / 325 Balance -320 / -320 227 / 227 Laboratory Tests Past 24 Hrs 12/04/17 12/05/17 12/05/17 19:45 04:10 04:10 WBC 15.5 H RBC 4.22 Hgb 13.5 Hct 40.1 MCV 95.0 MCH 32.0 MCHC 33.7 RDW 12.8 RDW Differential 44.1 H Plt Count 218 MPV 11.4 Immature Gran % (Auto) 0.300 Neut % (Auto) 76.7 H Lymph % (Auto) 15.3 L [place] % (Auto) 7.4 Eos % (Auto) 0.1 Baso % (Auto) 0.2 Absolute Neuts (auto) 11.9 H Absolute Lymphs (auto) 2.37 Total Counted Not Reportable Sodium 144 Potassium 3.8 Chloride 109 H Carbon Dioxide 21.0 Anion Gap 14 BUN 44 H Creatinine 1.05 H Estim Creat Clear Calc 55.38 Est GFR (MDRD) Af Amer 73 Est GFR (MDRD) Non-Af 60 BUN/Creatinine Ratio 41.9 H Glucose 107 H Calcium 8.7 Total Creatine Kinase MRSA (PCR) Negative 12/05/17 04:10 WBC RBC Hgb Hct MCV MCH MCHC RDW RDW Differential Plt Count MPV Immature Gran % (Auto) Neut % (Auto) Lymph % (Auto) [place] % (Auto) Eos % (Auto) Baso % (Auto) Absolute Neuts (auto) Absolute Lymphs (auto) Total Counted Sodium Potassium Chloride Carbon Dioxide Anion Gap BUN Creatinine Estim Creat Clear Calc Est GFR (MDRD) Af Amer Est GFR (MDRD) Non-Af BUN/Creatinine Ratio Glucose Calcium Total Creatine Kinase 561 H MRSA (PCR) Clinical Impression(s) from Imaging Studies Brain CT 12/04/17 13:55 IMPRESSION: Normal unenhanced CT scan of the brain. Electronically Signed: Rory Rabago MD at 15:34 EDT Tel [phone], Service support , Assessment/Plan RECOMMENDATIONS: 1. Okay to discontinue antibiotics from my perspective. 2. Release patient from restraints 3. Perform bedside swallow evaluation if appropriate and advance diet. 4. Once tolerating p.o. intake, discontinue supplemental IV fluids 5. Continue Haldol as needed 6. Restart home blood pressure medications once able to tolerate p.o. intake IMPRESSIONS: 1. Encephalopathy/altered mentation of unclear etiology The patient's presentation does not appear to be infectious in nature. This may be secondary to some form of illicit ingestion. The patient appears much more calm and appropriate this morning than that documented last evening. We will plan to discontinue her restraints accordingly. Continue as needed Haldol in the interim. Given that there does not appear to be a readily identifiable infectious process at play here, antibiotics can be discontinued. 2. Acute kidney injury Likely prerenal in etiology. CK was mildly elevated, although the patient was combative upon presentation to the hospital. Continue supplemental IV fluids accordingly. 3. Questionable COPD Continue as needed aerosol treatments for now. 4. Hypertension/GERD/chronic back pain/fibromyalgia Complicates care, management, recovery and prognosis. Plan to restart home antihypertensives once able to tolerate p.o. intake. Avoid sedating medications for now. This note was generated with [employer] dictation software. It may contain incorrect words, spelling, and punctuation that were not noted in checking the note before signing. Code Visit Inpatient E&M: 78261 Init Hosp L3
--- NOTE | 2017-12-05 07:35 | NURSING ---
Pt's RLE taken out of restraint at this time.
--- NOTE | 2017-12-05 08:33 | NURSING ---
Addendum entered by Stephanie Tyler 12/05/17 08:49: Remains oriented x3. CAM negative. Ice chips given, tolerated well. Original Note: Pt's LLE removed from restraint at this time.
[2017-12-05] MEDS: Heparin Injection 5,000 UNITS/ML Syringe 5000 UNITS SC ×2 (09:42→21:57)
[2017-12-05] MEDS: Ceftriaxone 1 GM/50 ML BAG IV (09:47)
--- NOTE | 2017-12-05 10:05 | NURSING ---
Pt's LUE taken out of restraint at this time.
--- NOTE | 2017-12-05 11:22 | PCM.PN.HOSP ---
Subjective: The patient was admitted yesterday night for altered mental status and was found by the shrimp pond laborer in a vehicle neck and probably before that she was found the parking lot. Currently she is more awake today, but she is still lethargic and sleepy. She had LP done in the ER which seems negative. Vitals/I&O's: Vital Signs Temp Pulse Resp BP Pulse Ox 98.0 F 87 18 159/95 H 100 12/05/17 10:00 12/05/17 11:15 12/05/17 11:15 12/05/17 11:15 12/05/17 11:00 Oxygen Delivery Method Room Air Weight: 151 lb 0.266 oz Intake and Output for Last 24 Hours 12/03/17 12/04/17 12/05/17 23:59 23:59 23:59 Intake Total 380 / 380 1324 / 1324 Output Total 700 / 700 575 / 575 Balance -320 / -320 749 / 749 General: Confused, Disoriented, Lethargic HEENT: Atraumatic, PERRLA, EOMI, Normocephalic Oral: Dry Mucosa Neck: Supple, No JVD, Negative Carotid Bruits Lungs: Clear to auscultation, No rhonchi, No wheeze, No rales, Diminished Cardiovascular: Regular rate, Regular Rhythm, Normal S1, Normal S2, No murmurs Abdomen: Bowel Sounds Present, Soft, Non Tender, Non-Distended Extremities: No clubbing Skin: No rashes, No breakdown Musculoskeletal: Arthritic Changes Laboratory Results 12/04/17 19:45: MRSA (PCR) Negative 12/05/17 04:10: WBC 15.5 H, RBC 4.22, Hgb 13.5, Hct 40.1, MCV 95.0, MCH 32.0, MCHC 33.7, RDW 12.8, RDW Differential 44.1 H, Plt Count 218, MPV 11.4, Immature Gran % (Auto) 0.300, Neut % (Auto) 76.7 H, Lymph % (Auto) 15.3 L, [place] % (Auto) 7.4, Eos % (Auto) 0.1, Baso % (Auto) 0.2, Absolute Neuts (auto) 11.9 H, Absolute Lymphs (auto) 2.37, Total Counted Not Reportable 12/05/17 04:10: Sodium 144, Potassium 3.8, Chloride 109 H, Carbon Dioxide 21.0, Anion Gap 14, BUN 44 H, Creatinine 1.05 H, Estim Creat Clear Calc 55.38, Est GFR (MDRD) Af Amer 73, Est GFR (MDRD) Non-Af 60, BUN/Creatinine Ratio 41.9 H, Glucose 107 H, Calcium 8.7 12/05/17 04:10: Total Creatine Kinase 561 H Current Medications Albuterol Sulfate (Ventolin Aerosols) 2.5 mg INHALATION Q4H PRN PRN PRN Reason: Shortness of breath, wheezing Haloperidol Lactate (Haldol) 2 mg IV Q4H PRN PRN PRN Reason: agitation, anxiety Heparin Sodium (Porcine) () 5,000 units SC BID [facility] Last Admin: 12/05/17 09:42 Dose: 5,000 units Hydralazine HCl (Apresoline Iv) 5 mg IV Q6H PRN PRN PRN Reason: for SBP>160 Lactated Ringer's () 1,000 mls @ 100 mls/hr IV .Q10H [facility] Last Admin: 12/05/17 04:57 Dose: 100 mls/hr Ceftriaxone Sodium (Rocephin) 1 gm in 50 mls @ 100 mls/hr IV Q24 [facility] Last Admin: 12/05/17 09:47 Dose: 100 mls/hr Famotidine (Pepcid 20mg) 20 mg in 50 mls @ 150 mls/hr IV Q24 [facility] Last Admin: 12/05/17 09:41 Dose: 150 mls/hr Lorazepam (Ativan) 2 mg IV Q4H PRN PRN PRN Reason: AGITATION Ondansetron HCl (Zofran) 4 mg IV Q6H PRN PRN PRN Reason: NAUSEA/VOMITING Sodium Chloride () 5 - 30 ml IV UD PRN PRN Reason: SALINE FLUSH Last Admin: 12/05/17 04:57 Dose: 20 ml Medical Necessity - Tobacco Use Smoking Status: Former smoker Tobacco Use: - - Unknown at this time. Assessment/Plan This is a 47 years old female patient brought to the emergency department by squad because she was found naked in her vehicle by the shrimp pond laborer and she was found to have altered mental status/encephalopathy without clear etiology, acute kidney injury and leukocytosis without evidence of infection. She is being admitted in the ICU. #1 altered mental status/encephalopathy: Unclear etiology related to drugs/substance use. Patient is still drowsy and lethargic but awake and coherent speech. CSF Gram stain shows no organism. Cell count shows 3 WBC, 1 polymorphs and 2 mononuclear cell and Glucose 71 and therefore negative for meningitis. CT head does not show acute change. CK elevated. UA was negative. Currently she is hemodynamically stable. Requires less pain than before and will try to discontinue slowly. Tox was positive off amphetamines, methamphetamine and cannabinoids. #2 acute kidney injury mild rhabdomyolysis: Likely prerenal secondary to dehydration. Mucous membranes are very dry. Baseline kidney function is normal, admission creatinine is 1.59. CK is elevated. Plan: IV fluids, input output chart, repeat BMP tomorrow morning. Creatinine improving. DC lactated Ringer. Start on IV fluid normal saline at 125 ml/h. #3 leukocytosis/SIRS: Without clear evidence of infection. UA was clear, no UTI or cystitis. Chest was clear to auscultation. Lactic acid was normal. CSF fluid analysis negative for meningitis. Patient received 1 dose of IV Rocephin empirically. Follow the blood culture but seems noninfectious since hence antibiotic discontinued. #4 COPD: At this time, pulse ox is 99% on room air. Lungs are clear to auscultation. Plan for albuterol as needed, oxygen by nasal cannula to keep O2 saturation more than 92%. #5 hypertension: Initially, blood pressure was elevated but improved. At home, she has been on HCTZ. At this time, HCTZ will be held, monitor blood pressure, IV hydralazine as needed. #6 GERD: Pepcid twice daily IV. #7 chronic back pain/chronic pain syndrome/fibromyalgia: At home, apparently she has been on hydromorphone and Lyrica. She received 1 dose of IV ketamine in the ER, patient is agitated and restless. Plan as above. #8 DVT prophylaxis: Subcu heparin. Code Visit Inpatient E&M: 37965 Subs Hosp L3
--- NOTE | 2017-12-05 11:30 | NURSING ---
Pt's RUE removed from restraint. Pt now removed from all 4 locked restraints. Mentation intact. Will continue to monitor. Continues to deny SI, HI, or drug use.
--- NOTE | 2017-12-05 11:36 | NURSING ---
Pt's mother, Annie, called into unit for update. Mother states that pt has been missing since and states last I heard was she was on crystal meth. Informed Annie of events leading up to admission and that pt currently denies any drug use, and she states of course she would. Relates to this RN that she was recently clean for 9 months. Relates that the pt also follows with a counselor once a month. Pt is on probation currently with an estranged and pt also has an incarcerated son who is incarcerated for charges associated with crystal meth. Asked if pt has been suicidal and she states not recently.
[2017-12-05] MEDS: 0.9% Normal Saline 1,000 ML 125 ML IV ×2 (12:00→17:11)
--- NOTE | 2017-12-05 12:26 | NURSING ---
Spoke w/ Dianna from crisis; gave update on pt admission hx and status. Will be up to see pt today- she is currently in ER.
--- NOTE | 2017-12-05 15:40 | NURSING ---
Dianna from crisis in to see pt at this time.
[2017-12-06] VITALS (7 sets, daily range): BP systolic 119–129; BP diastolic 70–80; PULSE 66–83; RESP 16–18; TEMP 36.6; O2SAT 98–100
[2017-12-06] MEDS: 0.9% Normal Saline 1,000 ML 125 ML IV (03:40)
--- NOTE | 2017-12-06 06:55 | PCM.PROGNOTE ---
Subjective: The patient was seen and examined at the bedside this morning. Events from the last 24 hours have been reviewed. The patient is currently afebrile, hemodynamically stable and maintaining appropriate oxygen saturations on room air. The patient's mother did confirm that the patient does use crystal meth. No overnight issues were identified by the nursing staff. The patient has been alert and appropriate. Objective: The patient's most recent lab work, culture data and imaging studies have all been personally reviewed. - Physical Exam General: Alert, Cooperative, No apparent distress HEENT: Atraumatic, PERRLA, Normocephalic Oral: Moist Mucosa, No Gingival or Mucosal Lesions/ Ulcerations Neck: Supple, No Nodes, Trachea Midline Lungs: Normal air movement, No rhonchi, No wheeze, No rales Cardiovascular: Regular rate, Regular Rhythm, Normal S1, Normal S2, No murmurs Abdomen: Bowel Sounds Present, Soft, Non Tender Extremities: No clubbing, No cyanosis, No edema Skin: No rashes, No breakdown Musculoskeletal: No Muscle Wasting Lymphatic: No Cervical, Supraclavicular, or Inguinal Adenopathy Neurological: Neuro grossly intact Psych/Mental Status: Normal Affect, Appropriate Vital Signs Temp Pulse Resp BP Pulse Ox 97.8 F 73 16 119/80 99 12/06/17 03:38 12/06/17 03:38 12/06/17 03:38 12/06/17 03:38 12/06/17 03:38 Oxygen Delivery Method Room Air Weight: 158 lb 4.67 oz Intake and Output for Last 24 Hours 12/04/17 12/05/17 12/06/17 23:59 23:59 23:59 Intake Total 380 / 380 2813 / 2813 736 / 736 Output Total 700 / 700 825 / 825 Balance -320 / -320 1987 736 / 736 Labs (Last 48 Hours) 12/04/17 12/04/17 12/04/17 13:02 13:20 13:20 WBC 22.4 H RBC 4.68 Hgb 15.2 H Hct 44.1 MCV 94.2 MCH 32.5 H MCHC 34.5 RDW 12.6 RDW Differential 43.0 Plt Count 293 MPV 11.4 Immature Gran % (Auto) 0.200 Neut % (Auto) 79.7 H Lymph % (Auto) 14.4 L [place] % (Auto) 5.6 Eos % (Auto) 0.0 Baso % (Auto) 0.1 Absolute Neuts (auto) 17.9 H Absolute Lymphs (auto) 3.22 Total Counted Not Reportable PT 13.5 INR 1.0 APTT 23.4 L Sodium Potassium Chloride Carbon Dioxide Anion Gap BUN Creatinine Estim Creat Clear Calc Est GFR (MDRD) Af Amer Est GFR (MDRD) Non-Af BUN/Creatinine Ratio Glucose Lactic Acid Calcium Total Bilirubin AST ALT Alkaline Phosphatase Total Creatine Kinase Total Protein Albumin Globulin Albumin/Globulin Ratio Urine Color Urine Clarity Urine pH Ur Specific [place] Urine Protein Urine Glucose (UA) Urine Ketones Urine Occult Blood Urine Nitrite Urine Bilirubin Urine Urobilinogen Ur Leukocyte Esterase Urine RBC Urine WBC Ur Squamous Epith Cells Urine Bacteria Hyaline Casts Urine Mucus Fld Polynuclear WBCs # Fld Polynuclear WBCs % Fluid Mononuclear WBCs Fld Mononuclear WBCs % CSF Appearance CSF Color CSF WBC CSF RBC CSF Cell Count Tube # CSF Total Cell Counted CSF Comment CSF Glucose Urine Opiates Screen Urine Methadone Screen Ur Barbiturates Screen Ur Phencyclidine Scrn Ur Amphetamines Screen U Methamphetamin-MDMA U Benzodiazepines Scrn Urine Cocaine Screen U Cannabinoids Screen Ur Drug Screen Comment MRSA (PCR) POC Glucose 120 H 12/04/17 12/04/17 12/04/17 13:20 13:20 13:22 WBC RBC Hgb Hct MCV MCH MCHC RDW RDW Differential Plt Count MPV Immature Gran % (Auto) Neut % (Auto) Lymph % (Auto) [place] % (Auto) Eos % (Auto) Baso % (Auto) Absolute Neuts (auto) Absolute Lymphs (auto) Total Counted PT INR APTT Sodium 139 Potassium 3.6 Chloride 103 Carbon Dioxide 22.0 Anion Gap 14 BUN 48 H Creatinine 1.59 H Estim Creat Clear Calc 36.57 Est GFR (MDRD) Af Amer 45 L Est GFR (MDRD) Non-Af 37 L BUN/Creatinine Ratio 30.2 H Glucose 107 H Lactic Acid Calcium 9.1 Total Bilirubin 0.90 AST 21 ALT 22 Alkaline Phosphatase 97 Total Creatine Kinase 377 H Total Protein 8.6 H Albumin 4.3 Globulin 4.3 H Albumin/Globulin Ratio 1.0 Urine Color YELLOW Urine Clarity Clear Urine pH 5.0 Ur Specific [place] 1.030 Urine Protein 15 H Urine Glucose (UA) Normal Urine Ketones 50 H Urine Occult Blood Negative Urine Nitrite Negative Urine Bilirubin Negative Urine Urobilinogen Normal Ur Leukocyte Esterase Negative Urine RBC 0 SEEN Urine WBC 0 SEEN Ur Squamous Epith Cells 0-5 SEEN Urine Bacteria 1+ Hyaline Casts 10-25 SEEN Urine Mucus 0 SEEN Fld Polynuclear WBCs # Fld Polynuclear WBCs % Fluid Mononuclear WBCs Fld Mononuclear WBCs % CSF Appearance CSF Color CSF WBC CSF RBC CSF Cell Count Tube # CSF Total Cell Counted CSF Comment CSF Glucose Urine Opiates Screen Urine Methadone Screen Ur Barbiturates Screen Ur Phencyclidine Scrn Ur Amphetamines Screen U Methamphetamin-MDMA U Benzodiazepines Scrn Urine Cocaine Screen U Cannabinoids Screen Ur Drug Screen Comment MRSA (PCR) POC Glucose 12/04/17 12/04/17 12/04/17 13:22 14:02 16:50 WBC RBC Hgb Hct MCV MCH MCHC RDW RDW Differential Plt Count MPV Immature Gran % (Auto) Neut % (Auto) Lymph % (Auto) [place] % (Auto) Eos % (Auto) Baso % (Auto) Absolute Neuts (auto) Absolute Lymphs (auto) Total Counted PT INR APTT Sodium Potassium Chloride Carbon Dioxide Anion Gap BUN Creatinine Estim Creat Clear Calc Est GFR (MDRD) Af Amer Est GFR (MDRD) Non-Af BUN/Creatinine Ratio Glucose Lactic Acid 1.2 Calcium Total Bilirubin AST ALT Alkaline Phosphatase Total Creatine Kinase Total Protein Albumin Globulin Albumin/Globulin Ratio Urine Color Urine Clarity Urine pH Ur Specific [place] Urine Protein Urine Glucose (UA) Urine Ketones Urine Occult Blood Urine Nitrite Urine Bilirubin Urine Urobilinogen Ur Leukocyte Esterase Urine RBC Urine WBC Ur Squamous Epith Cells Urine Bacteria Hyaline Casts Urine Mucus Fld Polynuclear WBCs # Fld Polynuclear WBCs % Fluid Mononuclear WBCs Fld Mononuclear WBCs % CSF Appearance CSF Color CSF WBC CSF RBC CSF Cell Count Tube # CSF Total Cell Counted CSF Comment CSF Glucose 71 Urine Opiates Screen NEGATIVE Urine Methadone Screen NEGATIVE Ur Barbiturates Screen NEGATIVE Ur Phencyclidine Scrn NEGATIVE Ur Amphetamines Screen POSITIVE H U Methamphetamin-MDMA POSITIVE H U Benzodiazepines Scrn NEGATIVE Urine Cocaine Screen NEGATIVE U Cannabinoids Screen POSITIVE H Ur Drug Screen Comment MRSA (PCR) POC Glucose 12/04/17 12/04/17 12/05/17 16:50 19:45 04:10 WBC 15.5 H RBC 4.22 Hgb 13.5 Hct 40.1 MCV 95.0 MCH 32.0 MCHC 33.7 RDW 12.8 RDW Differential 44.1 H Plt Count 218 MPV 11.4 Immature Gran % (Auto) 0.300 Neut % (Auto) 76.7 H Lymph % (Auto) 15.3 L [place] % (Auto) 7.4 Eos % (Auto) 0.1 Baso % (Auto) 0.2 Absolute Neuts (auto) 11.9 H Absolute Lymphs (auto) 2.37 Total Counted Not Reportable PT INR APTT Sodium Potassium Chloride Carbon Dioxide Anion Gap BUN Creatinine Estim Creat Clear Calc Est GFR (MDRD) Af Amer Est GFR (MDRD) Non-Af BUN/Creatinine Ratio Glucose Lactic Acid Calcium Total Bilirubin AST ALT Alkaline Phosphatase Total Creatine Kinase Total Protein Albumin Globulin Albumin/Globulin Ratio Urine Color Urine Clarity Urine pH Ur Specific [place] Urine Protein Urine Glucose (UA) Urine Ketones Urine Occult Blood Urine Nitrite Urine Bilirubin Urine Urobilinogen Ur Leukocyte Esterase Urine RBC Urine WBC Ur Squamous Epith Cells Urine Bacteria Hyaline Casts Urine Mucus Fld Polynuclear WBCs # 0.001 Fld Polynuclear WBCs % 33.3 Fluid Mononuclear WBCs 0.002 Fld Mononuclear WBCs % 66.7 CSF Appearance CLEAR CSF Color COLORLESS CSF WBC 0.003 H CSF RBC 93 H CSF Cell Count Tube # 1 CSF Total Cell Counted 0.003 H CSF Comment May follow CSF Glucose Urine Opiates Screen Urine Methadone Screen Ur Barbiturates Screen Ur Phencyclidine Scrn Ur Amphetamines Screen U Methamphetamin-MDMA U Benzodiazepines Scrn Urine Cocaine Screen U Cannabinoids Screen Ur Drug Screen Comment MRSA (PCR) Negative POC Glucose 12/05/17 12/05/17 04:10 04:10 WBC RBC Hgb Hct MCV MCH MCHC RDW RDW Differential Plt Count MPV Immature Gran % (Auto) Neut % (Auto) Lymph % (Auto) [place] % (Auto) Eos % (Auto) Baso % (Auto) Absolute Neuts (auto) Absolute Lymphs (auto) Total Counted PT INR APTT Sodium 144 Potassium 3.8 Chloride 109 H Carbon Dioxide 21.0 Anion Gap 14 BUN 44 H Creatinine 1.05 H Estim Creat Clear Calc 55.38 Est GFR (MDRD) Af Amer 73 Est GFR (MDRD) Non-Af 60 BUN/Creatinine Ratio 41.9 H Glucose 107 H Lactic Acid Calcium 8.7 Total Bilirubin AST ALT Alkaline Phosphatase Total Creatine Kinase 561 H Total Protein Albumin Globulin Albumin/Globulin Ratio Urine Color Urine Clarity Urine pH Ur Specific [place] Urine Protein Urine Glucose (UA) Urine Ketones Urine Occult Blood Urine Nitrite Urine Bilirubin Urine Urobilinogen Ur Leukocyte Esterase Urine RBC Urine WBC Ur Squamous Epith Cells Urine Bacteria Hyaline Casts Urine Mucus Fld Polynuclear WBCs # Fld Polynuclear WBCs % Fluid Mononuclear WBCs Fld Mononuclear WBCs % CSF Appearance CSF Color CSF WBC CSF RBC CSF Cell Count Tube # CSF Total Cell Counted CSF Comment CSF Glucose Urine Opiates Screen Urine Methadone Screen Ur Barbiturates Screen Ur Phencyclidine Scrn Ur Amphetamines Screen U Methamphetamin-MDMA U Benzodiazepines Scrn Urine Cocaine Screen U Cannabinoids Screen Ur Drug Screen Comment MRSA (PCR) POC Glucose Microbiology 12/04/17 16:50 Csf, Spinal Fluid Gram Stain - Final 12/04/17 16:50 Csf, Spinal Fluid CSF Culture - Preliminary Culture exhibits no growth. Clinical Impression(s) from Imaging Studies Brain CT 12/04/17 13:55 IMPRESSION: Normal unenhanced CT scan of the brain. Electronically Signed: Rory Rabago MD at 15:34 EDT Tel [phone], Service support , Medical Necessity - Tobacco Use Smoking Status: Former smoker Tobacco Use: - - Unknown at this time. Assessment/Plan RECOMMENDATIONS: 1. Consider discontinuing supplemental IV fluids. 2. Continue Haldol as needed 3. Continue appropriate prophylaxis 4. Restart home blood pressure medications 5. Encourage incentive spirometer use and mobilize patient as tolerated IMPRESSIONS: 1. Encephalopathy/altered mentation of unclear etiology Resolved at this time. The patient's presentation does not appear to be infectious in nature. This may be secondary to some form of illicit ingestion. The patient's mother did confirm that she routinely utilizes crystal meth. Continue as needed Haldol in the interim. 2. Acute kidney injury Improving. Likely prerenal in etiology. CK was mildly elevated, although the patient was combative upon presentation to the hospital. Supplemental IV fluids can likely be discontinued at this time. 3. Questionable COPD Continue as needed aerosol treatments for now. 4. Hypertension/GERD/chronic back pain/fibromyalgia Complicates care, management, recovery and prognosis. Restart home antihypertensives. This note was generated with Dragon dictation software. It may contain incorrect words, spelling, and punctuation that were not noted in checking the note before signing. Given the lack of ongoing ICU/pulmonary needs, will sign off. Please call with any additional questions. Code Visit Inpatient E&M: 44615 Subs Hosp L2
[2017-12-06 08:34] LABS: Absolute Lymphocyte Count 2.69 X10^3/ul (0.83-4.51); Absolute Neutrophil Count 3.3 X10^3/uL (2.0-7.7); Basophil# 0.04 X10^3/uL; Basophil% 0.6 % (0-1); Eosinophil# 0.07 X10^3/uL; Eosinophils% 1.1 % (0-5); Hematocrit 35.7 % (37-47); Hemoglobin 11.5 g/dl (12.0-15.0); Lymphocyte # 2.69 X10^3/ul (4.0); Lymphocyte % 40.8 % (19-41); Mean Corp Hgb Conc 32.2 g/gl (32-36); Mean Corpuscular Hgb 31.9 pg (27.0-32.0); Mean Corpuscular Volume 99.2 fL (81-99); Mean Platelet Vol. 11.3 fl (6.2-12.0); Monocyte% 7.6 % (0-10); Neutrophil # 3.28 X10^3/uL (2.7-7.7); Neutrophil % 49.7 % (47-70); Platelet Count 139 K/mm3 (150-450); RBC Distribution Width CV 12.8 % (11.6-14.6); RBC Distribution Width SD 46.6 fl (35.1-43.9); White Blood Count 6.6 K/mm3 (4.4-11.0)
[2017-12-06 08:35] LABS: POSITIVE COUNT NO; POSITIVE DIFFERENTIAL NO; POSITIVE MORPHOLOGY NO
[2017-12-06 09:23] LABS: CPK Total, Creatine Kinase 338 U/L (26-192)
[2017-12-06] MEDS: Heparin Injection 5,000 UNITS/ML Syringe 5000 UNITS SC (09:43)
--- NOTE | 2017-12-06 11:06 | PCM.DC ---
You will use the following diet at home:: No restrictions Discharge Activity: Return to Normal Activity Call your doctor if you observe: Shortness of breath, Dizziness, Fainting spells, Chest pain Allergies/Adverse Reactions: Allergies iodine Allergy (Verified 12/04/17 13:10) Hives ketorolac tromethamine [From Toradol] Allergy (Verified 12/04/17 13:10) Other tramadol Allergy (Verified 12/04/17 13:10) Other UNABLE TO TAKE W/ PSYC MEDS acetaminophen [From Vicodin] Adverse Reaction (Verified 12/04/17 13:10) Nausea/Vom/Diarrhea hydrocodone bitartrate [From Vicodin] Adverse Reaction (Verified 12/04/17 13:10) Nausea/Vom/Diarrhea Medications to take at Discharge Albuterol Inhaler [Ventolin Hfa] 1 puff INHALATION BID PRN PRN 03/13/15 Clonazepam [Klonopin] 1 mg PO TID 03/13/15 Cyclobenzaprine [Flexeril] 10 mg PO TID 03/13/15 Dextroamphetamine/Amphetamine [Adderall Xr 30 mg Capsule] 30 mg PO DAILY 03/13/15 Duloxetine Hcl [Cymbalta] 120 mg PO DAILY 03/13/15 Hydrochlorothiazide [Hctz] 25 mg PO DAILY 03/13/15 Lansoprazole [Prevacid] 30 mg PO DAILY 03/13/15 Loratadine [Claritin] 10 mg PO DAILY 03/13/15 Paliperidone [Invega] 6 mg PO DAILY 03/13/15 Pregabalin [Lyrica] 200 mg PO TID 03/13/15 busPIRone [Buspar] 10 mg PO TID 03/13/15 Docusate Sodium [Colace] 100 mg PO BID #30 capsule 07/22/15 Promethazine HCl 25 mg PO 4X/DAY PRN PRN #30 tablet 07/22/15 Primary Care Physician: Quentin Diggs DO [Primary Care Provider] - Please follow up with your Primary Care Physician in: 1 Week Proposed Discharge Date: 12/06/17
--- NOTE | 2017-12-06 11:08 | PCM.DC.SUM ---
<Lillian Hickey - Last Filed: 12/06/17 11:20> Discharge Date and Diagnosis Date of Admission: 12/04/17 Date of Discharge: 12/06/17 - Primary Discharge Diagnosis 1. Acute encephalopathy/altered mental status suspected secondary to illicit drug use, infectious etiology ruled out. 2. Acute kidney injury 3. Mild rhabdomyolysis - Secondary Discharge Diagnosis Chronic Problems Lumbar back pain (Chronic) Migraines (Chronic) History of fibromyalgia (Chronic) History of chronic fatigue syndrome (Chronic) History of urinary tract obstruction (Chronic) Morbid obesity (Chronic) Lump or mass in breast (Chronic) painful mass superior aspect right breast Fat necrosis of breast (Chronic) painful fat necrosis superior aspect right breast Bilateral mastodynia (Chronic) History of abnormal gait (Chronic) Smoker (Chronic) she quit prior to her surgery and has restarted nonhealing ulcers bilateral breasts (Chronic) she had bilateral breast reduction surgery on 04/17/15 Hypertension (Chronic) Asthma (Chronic) Chronic sinusitis (Chronic) IBS (irritable bowel syndrome) (Chronic) GERD (gastroesophageal reflux disease) (Chronic) COPD (chronic obstructive pulmonary disease) (Chronic) Fibromyalgia (Chronic) History of tobacco use (Chronic) History of migraine (Chronic) Hospital Course and Treatment Imaging Results: Diagnostic Data Brain CT 12/04/17 13:55 IMPRESSION: Normal unenhanced CT scan of the brain. Electronically Signed: Rory Rabago MD at 15:34 EDT Tel [phone], Service support , Consultations 12/05/17 11:54 Consult: Mental Health/Crisis Routine Reason for consult?: Hx substance abuse; tox + amphetamines Admit with overdose/encephalopathy Date Notified:: 12/05/17 Time notified:: 11:57 Dr. Vidales- Animal Services Officer Operations: None Procedures: None Summary of Care Provided: The patient is a 47 year old F admitted 12/04/2017 due to altered mental status. She was reported to be found by squad naked in her vehicle. She was agitated and incoherent in the emergency room upon arrival. She has a past medical history of COPD, tobacco abuse, history of migraines, fibromyalgia, GERD, IBS, chronic sinusitis, hypertension. Infectious etiology of encephalopathy was ruled out. Lumbar puncture unremarkable. UA and urine culture unremarkable. Lungs clear, no cough. Oxygen stable on room air. Lactic acid within normal limits. Brain CT normal. Toxicology screen was positive for amphetamines, methamphetamines and cannabinoids. Patient was noted to have acute kidney injury and mild rhabdomyolysis secondary to dehydration which improved with IV fluids. Leukocytosis suspected reactive, resolved. Patient is now alert and oriented. She was seen by crisis who cleared her for discharge. Other chronic medical conditions as noted above are stable at this time. Patient seen and examined prior to discharge. She is alert and oriented. Heart rate regular rate and rhythm. Lungs clear. Abdomen soft, nontender. Neuro grossly intact. Vital signs stable. Patient is stable for discharge home with further follow-up with primary care physician. This patient was seen by ROLANDA Lester under the supervision of Dr. Sy. Discharge Diet: No Restrictions Discharge Activity: Return to Normal Activity Call your doctor if you observe: Shortness of breath, Dizziness, Fainting spells, Chest pain Home Medications: Medications to take at Discharge Albuterol Inhaler [Ventolin Hfa] 1 puff INHALATION BID PRN PRN 03/13/15 Clonazepam [Klonopin] 1 mg PO TID 03/13/15 Cyclobenzaprine [Flexeril] 10 mg PO TID 03/13/15 Dextroamphetamine/Amphetamine [Adderall Xr 30 mg Capsule] 30 mg PO DAILY 03/13/15 Duloxetine Hcl [Cymbalta] 120 mg PO DAILY 03/13/15 Hydrochlorothiazide [Hctz] 25 mg PO DAILY 03/13/15 Lansoprazole [Prevacid] 30 mg PO DAILY 03/13/15 Loratadine [Claritin] 10 mg PO DAILY 03/13/15 Paliperidone [Invega] 6 mg PO DAILY 03/13/15 Pregabalin [Lyrica] 200 mg PO TID 03/13/15 busPIRone [Buspar] 10 mg PO TID 03/13/15 Docusate Sodium [Colace] 100 mg PO BID #30 capsule 07/22/15 Promethazine HCl 25 mg PO 4X/DAY PRN PRN #30 tablet 07/22/15 Primary Care Physician: Quentin Diggs DO [Primary Care Provider] - Please follow up with your Primary Care Physician in: 1 Week Disposition: Home Minutes spent on discharge:: 35 Patient Condition:: Stable Medical Necessity - Tobacco Use Smoking Status: Former smoker Tobacco Use: - - Unknown at this time. Meaningful Use Info Meaningful Use Diagnoses (Choose all that apply): None applicable <Roberto Carlos Sy - Last Filed: 12/06/17 13:30> Discharge Date and Diagnosis - Secondary Discharge Diagnosis Chronic Problems Lumbar back pain (Chronic) Migraines (Chronic) Morbid obesity with BMI of 40.0-44.9, adult (Chronic) History of fibromyalgia (Chronic) History of chronic fatigue syndrome (Chronic) History of urinary tract obstruction (Chronic) Morbid obesity (Chronic) Lump or mass in breast (Chronic) painful mass superior aspect right breast Fat necrosis of breast (Chronic) painful fat necrosis superior aspect right breast Bilateral mastodynia (Chronic) History of abnormal gait (Chronic) Smoker (Chronic) she quit prior to her surgery and has restarted nonhealing ulcers bilateral breasts (Chronic) she had bilateral breast reduction surgery on 04/17/15 Hypertension (Chronic) Asthma (Chronic) Chronic sinusitis (Chronic) IBS (irritable bowel syndrome) (Chronic) GERD (gastroesophageal reflux disease) (Chronic) COPD (chronic obstructive pulmonary disease) (Chronic) Fibromyalgia (Chronic) History of tobacco use (Chronic) History of migraine (Chronic) Hospital Course and Treatment Consultations 12/05/17 11:54 Consult: Mental Health/Crisis Routine Reason for consult?: Hx substance abuse; tox + amphetamines Admit with overdose/encephalopathy Date Notified:: 12/05/17 Time notified:: 11:57 Summary of Care Provided: This patient was seen in conjunction with Lillian APARICIO. I have independently interviewed and examined the patient and reviewed pertinent history, examination findings, laboratory and plan of management. I have reviewed the note and agree with the documented findings with the few additional points. In brief, patient is admitted for acute encephalopathy most probably related to substance use, methamphetamine and cannabinoids. Patient denies suicidal ideation/attempt. Patient seen by mental health professional and recommended discharge home. Discharge medication reconciliation done. Discharge follow-up instructions completed. Total time spent, exact 32 minutes on discharge meds reconciliation, examination, review of imaging and blood test and discussion with the patient on follow-up instructions. I have discussed my assessment with Lillian APARICIO and orders have been reviewed. [] Code Visit Inpatient E&M: 57423 Disch Hosp
--- NOTE | 2017-12-06 11:19 | DS.PCM_ITS ---
<Lillian Hickey - Last Filed: 12/06/17 11:20> Discharge Date and Diagnosis Date of Admission: 12/04/17 Date of Discharge: 12/06/17 - Primary Discharge Diagnosis 1. Acute encephalopathy/altered mental status suspected secondary to illicit drug use, infectious etiology ruled out. 2. Acute kidney injury 3. Mild rhabdomyolysis - Secondary Discharge Diagnosis Chronic Problems Lumbar back pain (Chronic) Migraines (Chronic) History of fibromyalgia (Chronic) History of chronic fatigue syndrome (Chronic) History of urinary tract obstruction (Chronic) Morbid obesity (Chronic) Lump or mass in breast (Chronic) painful mass superior aspect right breast Fat necrosis of breast (Chronic) painful fat necrosis superior aspect right breast Bilateral mastodynia (Chronic) History of abnormal gait (Chronic) Smoker (Chronic) she quit prior to her surgery and has restarted nonhealing ulcers bilateral breasts (Chronic) she had bilateral breast reduction surgery on 04/17/15 Hypertension (Chronic) Asthma (Chronic) Chronic sinusitis (Chronic) IBS (irritable bowel syndrome) (Chronic) GERD (gastroesophageal reflux disease) (Chronic) COPD (chronic obstructive pulmonary disease) (Chronic) Fibromyalgia (Chronic) History of tobacco use (Chronic) History of migraine (Chronic) Hospital Course and Treatment Imaging Results: Diagnostic Data Brain CT 12/04/17 13:55 IMPRESSION: Normal unenhanced CT scan of the brain. Electronically Signed: Rory Rabago MD at 15:34 EDT Tel [phone], Service support , Consultations 12/05/17 11:54 Consult: Mental Health/Crisis Routine Reason for consult?: Hx substance abuse; tox + amphetamines Admit with overdose/encephalopathy Date Notified:: 12/05/17 Time notified:: 11:57 Dr. Vidales- Counter Waitress/Waiter Operations: None Procedures: None Summary of Care Provided: The patient is a 47 year old F admitted 12/04/2017 due to altered mental status. She was reported to be found by squad naked in her vehicle. She was agitated and incoherent in the emergency room upon arrival. She has a past medical history of COPD, tobacco abuse, history of migraines, fibromyalgia, GERD, IBS, chronic sinusitis, hypertension. Infectious etiology of encephalopathy was ruled out. Lumbar puncture unremarkable. UA and urine culture unremarkable. Lungs clear, no cough. Oxygen stable on room air. Lactic acid within normal limits. Brain CT normal. Toxicology screen was positive for amphetamines, methamphetamines and cannabinoids. Patient was noted to have acute kidney injury and mild rhabdomyolysis secondary to dehydration which improved with IV fluids. Leukocytosis suspected reactive, resolved. Patient is now alert and oriented. She was seen by crisis who cleared her for discharge. Other chronic medical conditions as noted above are stable at this time. Patient seen and examined prior to discharge. She is alert and oriented. Heart rate regular rate and rhythm. Lungs clear. Abdomen soft, nontender. Neuro grossly intact. Vital signs stable. Patient is stable for discharge home with further follow-up with primary care physician. This patient was seen by ROLANDA Lester under the supervision of Dr. Sy. Discharge Diet: No Restrictions Discharge Activity: Return to Normal Activity Call your doctor if you observe: Shortness of breath, Dizziness, Fainting spells , Chest pain Home Medications: Medications to take at Discharge Albuterol Inhaler [Ventolin Hfa] 1 puff INHALATION BID PRN PRN 03/13/15 Clonazepam [Klonopin] 1 mg PO TID 03/13/15 Cyclobenzaprine [Flexeril] 10 mg PO TID 03/13/15 Dextroamphetamine/Amphetamine [Adderall Xr 30 mg Capsule] 30 mg PO DAILY Duloxetine Hcl [Cymbalta] 120 mg PO DAILY 03/13/15 Hydrochlorothiazide [Hctz] 25 mg PO DAILY 03/13/15 Lansoprazole [Prevacid] 30 mg PO DAILY 03/13/15 Loratadine [Claritin] 10 mg PO DAILY 03/13/15 Paliperidone [Invega] 6 mg PO DAILY 03/13/15 Pregabalin [Lyrica] 200 mg PO TID 03/13/15 busPIRone [Buspar] 10 mg PO TID 03/13/15 Docusate Sodium [Colace] 100 mg PO BID #30 capsule 07/22/15 Promethazine HCl 25 mg PO 4X/DAY PRN PRN #30 tablet 07/22/15 Primary Care Physician: Quentin Diggs DO [Primary Care Provider] - Please follow up with your Primary Care Physician in: 1 Week Disposition: Home Minutes spent on discharge:: 35 Patient Condition:: Stable Medical Necessity - Tobacco Use Smoking Status: Former smoker Tobacco Use: - - Unknown at this time. Meaningful Use Info Meaningful Use Diagnoses (Choose all that apply): None applicable <Roberto Carlos Sy - Last Filed: 12/06/17 13:30> Discharge Date and Diagnosis - Secondary Discharge Diagnosis Chronic Problems Lumbar back pain (Chronic) Migraines (Chronic) Morbid obesity with BMI of 40.0-44.9, adult (Chronic) History of fibromyalgia (Chronic) History of chronic fatigue syndrome (Chronic) History of urinary tract obstruction (Chronic) Morbid obesity (Chronic) Lump or mass in breast (Chronic) painful mass superior aspect right breast Fat necrosis of breast (Chronic) painful fat necrosis superior aspect right breast Bilateral mastodynia (Chronic) History of abnormal gait (Chronic) Smoker (Chronic) she quit prior to her surgery and has restarted nonhealing ulcers bilateral breasts (Chronic) she had bilateral breast reduction surgery on 04/17/15 Hypertension (Chronic) Asthma (Chronic) Chronic sinusitis (Chronic) IBS (irritable bowel syndrome) (Chronic) GERD (gastroesophageal reflux disease) (Chronic) COPD (chronic obstructive pulmonary disease) (Chronic) Fibromyalgia (Chronic) History of tobacco use (Chronic) History of migraine (Chronic) Hospital Course and Treatment Consultations 12/05/17 11:54 Consult: Mental Health/Crisis Routine Reason for consult?: Hx substance abuse; tox + amphetamines Admit with overdose/encephalopathy Date Notified:: 12/05/17 Time notified:: 11:57 Summary of Care Provided: This patient was seen in conjunction with Lillian APARICIO. I have independently interviewed and examined the patient and reviewed pertinent history, examination findings, laboratory and plan of management. I have reviewed the note and agree with the documented findings with the few additional points. In brief, patient is admitted for acute encephalopathy most probably related to substance use, methamphetamine and cannabinoids. Patient denies suicidal ideation/attempt. Patient seen by mental health professional and recommended discharge home. Discharge medication reconciliation done. Discharge follow-up instructions completed. Total time spent, exact 32 minutes on discharge meds reconciliation, examination , review of imaging and blood test and discussion with the patient on follow-up instructions. I have discussed my assessment with Lillian APARICIO and orders have been reviewed. [] Code Visit Inpatient E&M: 66796 Disch Hosp
[2017-12-07 12:40] LABS: Pathologist Review Reviewed
== END 2017-12-06 14:10 | disposition home or self-care (01) | DRG 92 ==
LOC: ED 17:12 → ICU 17:40 → PCU 12-06 11:14 → ICU 12-08 09:22 → PCU 12-08 09:22
PROVIDERS: Family Medicine; Admitting Provider Hospitalist; Emergency Provider Emergency Medicine; Family Provider Student in an Organized Health Care Education/Training Program; PCP Student in an Organized Health Care Education/Training Program; Visit Provider Internal Medicine
DX: G92 Toxic encephalopathy (principal); N17.9 Acute kidney failure, unspecified; M62.82 Rhabdomyolysis; Z78.1 Physical restraint status; F19.90 Other psychoactive substance use, unspecified, uncomplicated; F17.200 Nicotine dependence, unspecified, uncomplicated; I10 Essential (primary) hypertension; K58.9 Irritable bowel syndrome, unspecified; J44.9 Chronic obstructive pulmonary disease, unspecified; M79.7 Fibromyalgia; K21.9 Gastro-esophageal reflux disease without esophagitis; J32.9 Chronic sinusitis, unspecified; E86.0 Dehydration; F19.10 Other psychoactive substance abuse, uncomplicated; Z23 Encounter for immunization; G43.909 Migraine, unspecified, not intractable, without status migrainosus
CPT/HCPCS: 36415; 62270; 70450; 80048; 80053; 80307; 81001; 82550; 82945; 82962; 83605; 85025; 85610; 85730; 87040; 87070; 87077; 87086; 87088; 87205; 87641; 89050; 89051; 90715; 93005; 99285; 99406; J7030; J7050; J7120; A4216; J3486; J3490

== ENCOUNTER 2021-03-04 12:30 | Outpatient (RCR) | payer OTHER, SELFPAY ==
[2021-02-21 13:33] VITALS: BMI 28.5
--- NOTE | 2021-03-04 12:51 | HP.PTEVAL_ITS ---
Patient's Visit Information BERTRAND CONSTANTINO is a 50 year old F referred to Physical Therapy by ASHLEY Cook with a diagnosis of R shoulder strain, R knee contusion. Date of Evaluation: 03/04/21 Physical Therapist: Jaden Concepcion, BERNICET, OCS, CSCS - Visit Plan Frequency: 3x /Week Duration: 4-6 Weeks Plan: 3x/week for 3-4 weeks for. 1. postural strength. 2. R hip and knee strength. progress to [facility] and ensure R knee aROM improving. - Subjective Fell at work, 3 weeks ago. Walking and had rocks that she fell on. Worked all night but hard to move the next morning. Hit both knees and R hurts worse than L. Improving and is 60% better overall. Can walk 1/2 mile for fitness, wants to do 2-3 miles. R knee still hurts at 4/10 currently and lots of walking will make it worse or sitting too long. R shoulder hurts laterally and up to neck, 5/10 and is currently agitated. Shoulder worse with reaching. Can do what she needs to do but painful. Dressing hurts R shoulder putting shirt on with limited ROM. Sleep is not great. Hand goes to sleep and is seeing OT for that. Needs to be careful of position of R knee. Basic ADLs are getting done. Some of them hurt using R shoulder or being on feet too much. Hobbies include walking. 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 Normally she is standing all day. - Pain R knee Pain Intensity (Out of 10): 4 Pain Intensity Range: 0, 7 R shoulder Pain Intensity (Out of 10): 5 Pain Intensity Range: 0, 6 - Objective Walks normal but slow. No antalgia today. Able to ascend and descend steps without rail but painful to descend with R. Transfers bed adn chair I without UE. UE AROM shoulders and neck full and without pain increase today. strength shoulders 4-/5 and symmetrical. No c/o pain. reflexes 2/3 bi and tri, sensation WNL to gross light touch elbow up. Having oT for elbow. LE AROM WFL except R knee which is 0-93 but 126 passively. 0-130 L. Passive ROM L knee 0- 130. Pain wtih OP R knee flexion . reflexes 2/3 patella and achilles. Sensation LE WNL to gross light touch. Strength R LE hip flexion 3+, abd 3+, adn ext 3/ L LE is abd 4-, flexion 4- and ext 3. knee flexion and ext 3+ R and 4- , pain in R knee with ext only. ankles are WFL ROM trammell adn 4-/5. - valgus and varus and ant drawer and patella grind on R, slight pain with bounce home. - labral test R shoulder, - drop arm, - ext rotation lag test. - Goals Goal 1:: walk in community and steps without evidence of pain. Goal Time Frame: 4-6 Weeks Goal 2:: Pt feel 95% back to noromal with knee and shoulde. Goal Time Frame: 4-6 Weeks Goal 3:: Pt walk 2 miles for fitness without issues. Goal Time Frame: 4-6 Weeks Goal 4:: I approp HEP to limit future problems knee adn shoulder Goal Time Frame: 4-6 Weeks - Rehabilitation Potential Physical Therapy Diagnosis: knee contusion , R shoulder doing well, overall feels decreased abilities due to pain. Rehabilitation Potential: Fair - Anticipated Interventions Patient/Client Instruction: Educate patient on: Condition, Plan of Care For the Purpose of:: To decrease pain, To increase ROM, To improve muscle performance and motor function Therapeutic Exercise to Include: Strength training, Postural training, Flexibilty training, Passive ROM, Active ROM For the Purpose of:: To decrease pain, To increase ROM, To improve muscle performance and motor function, To improve ability of physical actions for home/community/work/leisure Cryotherapy (ice pack, ice massage): Yes Thermo therapy (hot pack): Yes For the Purpose of:: To decrease swelling/inflammation, To improve nutrient delivery to tissue Thank you for the opportunity to evaluate your patient. For Medicare and Medicare HMO plans, please review the plan of care and approve it. It will need to be FAXED BACK to us at [phone] for Medicare purposes. For Medicare only, by signing this I certify the plan of care. Please let me know if there are questions or concerns regarding this plan of care. Physician Signature: Date:
--- NOTE | 2021-03-04 13:24 | HP.OTEVAL ---
Patient's Visit Information BERTRAND CONSTANTINO is a 50 year old F, referred to Occupational Therapy by ASHLEY Cook, with a diagnosis of diagnoses of strain of unspec. muscle, fascia, and tendon at wrist/hand. Date of Evaluation: 03/04/21 Occupational Therapist: Nora Newman, PARKER/Amaya, CHT - Subjective This 50/F was pt was seen for an OT eval today in regards to a fall at her workplace 3-5 weeks ago ([employer]) with a diagnoses of strain of unspec. muscle, fascia, and tendon at wrist/hand level, and contusion of R hand. Pt is right handed, but self-reported that she has been using both hands to keep her hands moving and try to strengthen her R arm during her work tasks. pt had fall while at [employer]. works second shift and has been employed for about 4 weeks. 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 - Pain Right Elbow 7 Pain Intensity Range: 5, 7 - Objective When working through the Ulnar Nerve glides and extending the elbow and flexing the wrist, R RF and LF stayed extended at the MCP jt and slightly flexed at the PIP jts. - ROM Elbow: right flex WFL ext WFL Forearm: right sup 55* left sup WFL Wrist: right 65/70 left 75/70 Opposition: Right 4 ROM Comments: Right RF and LF unable to flex at MCP jt to touch thumb. Based on clinical observation during assistant professor of anthropology strength test, pt demonstrated decreased grasp of her R MF and LF - Strength Vending Technician: right 10# left 45# Lateral Pinch: right 4# left 8# Tripod Pinch: right 2# Left 6# - Quick DASH-Disab of Arm,Shoulder& Hand Quick DASH Score: 58.3325 - Goals Goal:: Pt will demonstrate an increase in R assistant professor of anthropology strength by 20# to increase function in her workplace by d/c. Goal:: pt will demonstrate full R FA supination or equal to unaffected UE to return pt to PLOF by d/c. pt will demonstrate full R composite fist while grasping small objects by d/c. pt will demonstrate ability to engage R MF and RF during assistant professor of anthropology strength test by d/c. Goal:: pt will self-report R FA arm no greater than a 1 during work and daily tasks by d/c. Goal:: Pt will self-report a decrease in numbness/tingling in her R digits by 50% by d/c. - Rehabilitation General Assessment: pt demo with a decrease in right forearm ROM pain with motion and increase in tingling/numbness of right RF and LF. pt is limited with ADls and her primary work task and would benefit from skilled OT services 2-3x week for 4 weeks. Today therapist ed. pt on ulnar nerve glides, and forearm, wrist ROM- use of ice 2-3x a day. pt demo understanding and agree to POC. Therapy eval doc. supervised approved by Nora Newman OTR/L, CHT. Rehabilitation Potential: Good - Anticipated Interventions A/AAROM/PROM, Strengthening, Triggerpoint Release, Modalities - Visit Plan Frequency: 2-3x /Week Duration: 4 Weeks General Plan: Pt to start HEP of ulnar nerve glides, use of ice and AROM exercises daily to decrease pain and increase ROM. therapy will progress pt with PRE as she delmi. TEXT: Thank you for the opportunity to evaluate your patient. For Medicare and Medicare HMO plans, please review the plan of care and approve it. It will need to be FAXED BACK to us at [phone] for Medicare purposes. Please let me know if there are questions or concerns regarding this plan of care. Physician Signature: Date:
--- NOTE | 2021-05-02 12:22 | HP.PT.NRP ---
BERTRAND CONSTANTINO was seen in my office for initial evaluation on 03/04/21. The following Plan of Care was established for this patient: Initial Frequency: 3x /Week Initial Duration: 4-6 Weeks Patient/Client Instruction: Educate patient on: Condition, Plan of Care For the Purpose of:: To decrease pain, To increase ROM, To improve muscle performance and motor function Therapeutic Exercise to Include: Strength training, Postural training, Flexibilty training, Passive ROM, Active ROM For the Purpose of:: To decrease pain, To increase ROM, To improve muscle performance and motor function, To improve ability of physical actions for home/community/work/leisure Cryotherapy (ice pack, ice massage): Yes Thermo therapy (hot pack): Yes For the Purpose of:: To decrease swelling/inflammation, To improve nutrient delivery to tissue This patient was last seen in our office 03/04/21. Pertinent comments regarding their Physical therapy will appear below: Pt seen for initial evaluation and POC established. Pt no showed for the rest of his visits. at this point, I will disocntinue him due to nonattendance. At this point I will be discontinuing this patient from physical therapy. I would be happy to see this patient again in the future if found appropriate by the physician. Thank you! Jaden Concepcion, DPT, OCS, CSCS Balance/Gait/Functional tests - Balance/Special Test Scores Lower Extremity Functional Score: 39
== END 2021-03-04 19:00 | disposition home or self-care (01) ==
LOC: PT 12:30
PROVIDERS: PCP Student in an Organized Health Care Education/Training Program; Referring Provider Physician Assistant; Visit Provider Physician Assistant
DX: S46.911D Strain of unspecified muscle, fascia and tendon at shoulder and upper arm level, right arm, subsequent encounter (principal); S80.01XD Contusion of right knee, subsequent encounter; S66.911D Strain of unspecified muscle, fascia and tendon at wrist and hand level, right hand, subsequent encounter; S60.221D Contusion of right hand, subsequent encounter; X58.XXXD Exposure to other specified factors, subsequent encounter; Y99.0 Civilian activity done for income or pay
CPT/HCPCS: 97162; 97166; 97530